=== PATIENT | female | born 1955 | race Caucasian/White ===

== ENCOUNTER 2017-11-14 15:57 | Observation (INO) | payer SELFPAY ==
[2017-11-14] VITALS (7 sets, daily range): BP systolic 97–112; BP diastolic 57–74
[~2017-11-14] VITALS: Ht 165.1 cm; Wt 82.7 kg
[~2017-11-14 15:57] MED LIST: ALPR-557 GT; ALPR.5T PO; ASP81TEC PO; ASPI-198 PO; CYCL10TA9 PO; DIAZ2TAB PO; MTP25TSR PO; NAPR-243 PO; PHEN200T27 PO; SULF-222 PO
[2017-11-14] MEDS ORDERED: ENOXAPARIN 100 MG/1 ML (LOVENOX) SYR ONE (16:12)
[2017-11-14] MEDS ORDERED: DILTIAZEM 25 MG/5 ML INJ (CARDIZEM) VIAL ONE (16:12)
[2017-11-14] MEDS ORDERED: ADENOSINE 6 MG/2 ML (ADENOCARD) VIAL IV ONE (16:13)
[2017-11-14] MEDS ORDERED: DILTIAZEM (Omnicell drip kit) 5 X 25 MG VIALS ONE (16:13)
[2017-11-14] MEDS ORDERED: NS IV 1000 ML 1,000 ML ONE (16:16)
[2017-11-14] MEDS ORDERED: NS (IVPB) 100 ML ONE (16:17)
[2017-11-14] MEDS ORDERED: ONDANSETRON 4 MG/2 ML (SDV) Z0FRAN ONE (16:17)
[2017-11-14] MEDS ORDERED: NS IV 1000 ML 1,000 ML IV ONE (16:24)
[2017-11-14] MEDS ORDERED: DILTIAZEM INJECTION 125 MG in NS (IVPB) 100 ML IV SCH (16:30)
[2017-11-14] MEDS ORDERED: ENOXAPARIN 100 MG/1 ML (LOVENOX) SYR SC ONE (16:30)
[2017-11-14] MEDS ORDERED: DILTIAZEM 25 MG/5 ML INJ (CARDIZEM) VIAL IVP ONE (16:30)
--- NOTE | 2017-11-14 16:35 | ED Cardiac General ---
History of Present Illness General Stated Complaint: EPISODE OF SOB/PALPITATIONS/JAW DISCOMFORT Source: patient History of Present Illness Date Seen by Provider: Nov 14, 2017 Time Seen by Provider: 16:02 Initial Comments PT ARRIVES VIA POV PT STATES "GOT REAL FLUTTERY AND BREATHLESS" --SYMPTOMS BEGAN LESS THAN 30 MINUTES PRIOR TO ARRIVAL, WHILE RIDING IN CAR. HAS HAD THESE SYMPTOMS OFF AND ON ALL WEEK, BUT NOT THIS BAD OR FOR THIS LONG. HAS HAD GENERALIZED WEAKNESS AND FATIGUE SINCE THURSDAY LEFT JAW HAD WEIRD SENSATION--"FELT LIKE AN AIR BUBBLE WENT THROUGH A VEIN" -- SENSATION IS GONE NOW BEGAN HAVING NAUSEA EN ROUTE HANDS WERE CLAMMY ENROUTE HAS HAD SOME ANKLE SWELLING THIS WEEK HAS HAD A SLIGHT COUGH NO FEVER IS FEELING DIZZY HAS ONGOING PAIN TO LEFT UPPER CHEST/BREAST SINCE MAY--HAS HAD PAINFUL LUMPS IN THIS AREA. AND HAS SEEN ARTIST BLACKSMITH ABOUT IT BUT NO RECNET MAMMOGRAM OR ULTRASOUND--BUT HAS BEEN LESS THAN A YEAR SINCE LAST MAMMOGRAM SEEN AT [facility] IN [place] YESTERDAY FOR THESE SYMPTOMS--HAD LAB DRAWN BUT NO RESULTS FEELING ANXIOUS--HAS HAD ANXIETY /PANIC ATTACKS IN THE PAST AND BEEN PRESCRIBED XANAX IN THE PAST--NOT USED FOR A LONG TIME. PT TOOK 4 BABY ASPIRIN AND DRANK ORANGE JUICE ENROUTE, WITHOUT IMPROVEMENT IN SYMPTOMS PCP: [facility] IN [place] Allergies and Home Medications Allergies Coded Allergies: morphine (Verified Allergy, Severe, 04/29/13) menthol (Unverified Allergy, Unknown, 02/19/14) lorazepam (Unverified Adverse Reaction, Unknown, ANGRY, 02/19/14) Uncoded Allergies: PCN (Allergy, Unknown, 02/19/14) Home Medications Diazepam 2 Mg Tablet, 2 MG PO BID PRN for ANXIETY Prescribed by: ALFONSO DURAN on 11/19/15 9142 Patient Home Medication List Home Medication List Reviewed: Yes Review of Systems Constitutional: see HPI, dizziness, malaise (FATIGUE), weakness, other (CLAMMY) EENTM: See HPI Respiratory: See HPI, Cough, Shortness of Air, SOA With Exertion, SOA at Rest, Denies Wheezing Cardiovascular: See HPI, Chest Pain, Edema, Irregular Heart Rate, Lightheadedness, Palpitations, Denies Syncope Gastrointestinal: See HPI, Denies Abdominal Pain, Nausea, Denies Vomiting Genitourinary: No Symptoms Reported Musculoskeletal: no symptoms reported, No back pain, No neck pain Skin: no symptoms reported Psychiatric/Neurological: See HPI, Anxiety, Denies Headache, Denies Numbness, Denies Paresthesia, Denies Tingling, Denies Tremors, Denies Weakness Endocrine: No Symptoms Reported Hematologic/Lymphatic: No Symptoms Reported Past Xclbqdt-Uhaoua-Flyyzc Hx Patient Social History Alcohol Use: Denies Use Recreational Drug Use: No Smoking Status: Never a Smoker Recent Foreign Travel: No Contact w/Someone Who Travel: No Surgeries History of Surgeries: Yes Surgeries: Tonsillectomy Respiratory History of Respiratory Disorde: No Cardiovascular History of Cardiac Disorders: No Neurological History of Neurological Disord: No Reproductive System Hx Reproductive Disorders: No 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 Genitourinary History of Genitourinary Disor: No Gastrointestinal History of Gastrointestinal Di: No Musculoskeletal History of Musculoskeletal Dis: No Endocrine History of Endocrine Disorders: No HEENT History of HEENT Disorders: Yes (POSSIBLE GLAUCOMA) Cancer History of Cancer: No Psychosocial History of Psychiatric Problem: Yes Behavioral Health Disorders: Anxiety Physical Exam Vital Signs Vital Signs - First Documented 11/14/17 16:11 Temp 98.6 Pulse 170 Resp 14 B/P (MAP) 146/101 (116) Pulse Ox 98 O2 Delivery Nasal Cannula O2 Flow Rate 2.00 FiO2 100 Capillary Refill : General Appearance: No Apparent Distress, WD/WN, Anxious HEENT: PERRL/EOMI Neck: Full Range of Motion, Normal Inspection, Non Tender, Supple, No Carotid Bruit, No JVD Respiratory: Chest Non Tender, Normal Breath Sounds, No Accessory Muscle Use, No Respiratory Distress Cardiovascular: Regular Rate, Rhythm, No JVD, No Murmur, Normal Peripheral Pulses Gastrointestinal: Non Tender, Soft Extremity: Normal Capillary Refill, Normal Range of Motion, Non Tender, No Calf Tenderness, Pedal Edema (TRACE BILATERALLY) Neurologic/Psychiatric: Alert, Oriented x3, No Motor/Sensory Deficits, piece dyer II- XII Norm as Tested, Other (ANXIOUS) Skin: Normal Color, Warm/Dry Progress/Results/Core Measures Results/Orders Lab Results Laboratory Tests Test 11/14/17 16:10 Range/Units White Blood Count 8.2 4.3-11.0 10^3/uL Red Blood Count 4.32 L 4.35-5.85 10^6/uL Hemoglobin 13.6 11.5-16.0 G/DL Hematocrit 40 35-52 % Mean Corpuscular Volume 93 80-99 FL Mean Corpuscular Hemoglobin 32 25-34 PG Mean Corpuscular Hemoglobin Concent 34 32-36 G/DL Red Cell Distribution Width 12.9 10.0-14.5 % Platelet Count 244 130-400 10^3/uL Mean Platelet Volume 10.0 7.4-10.4 FL Neutrophils (%) (Auto) 48 42-75 % Lymphocytes (%) (Auto) 44 12-44 % Monocytes (%) (Auto) 5 0-12 % Eosinophils (%) (Auto) 3 0-10 % Basophils (%) (Auto) 0 0-10 % Neutrophils # (Auto) 3.9 1.8-7.8 X 10^3 Lymphocytes # (Auto) 3.6 1.0-4.0 X 10^3 Monocytes # (Auto) 0.4 0.0-1.0 X 10^3 Eosinophils # (Auto) 0.2 0.0-0.3 10^3/uL Basophils # (Auto) 0.0 0.0-0.1 10^3/uL Prothrombin Time 12.7 12.2-14.7 SEC INR Comment 0.9 0.8-1.4 Activated Partial Thromboplast Time 24 24-35 SEC Sodium Level 138 135-145 MMOL/L Potassium Level 3.6 3.6-5.0 MMOL/L Chloride Level 105 98-107 MMOL/L Carbon Dioxide Level 22 21-32 MMOL/L Anion Gap 11 5-14 MMOL/L Blood Urea Nitrogen 11 7-18 MG/DL Creatinine 0.82 0.60-1.30 MG/DL Estimat Glomerular Filtration Rate > 60 BUN/Creatinine Ratio 13 Glucose Level 173 H 70-105 MG/DL Calcium Level 9.3 8.5-10.1 MG/DL Magnesium Level 2.2 1.8-2.4 MG/DL Total Bilirubin 0.6 0.1-1.0 MG/DL Aspartate Amino Transf (AST/SGOT) 26 5-34 U/L Alanine Aminotransferase (ALT/SGPT) 26 0-55 U/L Alkaline Phosphatase 64 40-136 U/L Total Creatine Kinase 88 29-168 U/L Creatine Kinase MB 1.2 <6.6 NG/ML Troponin I < 0.30 <0.30 NG/ML B-Type Natriuretic Peptide 72.7 <100.0 PG/ML Total Protein 7.0 6.4-8.2 GM/DL Albumin 4.4 3.2-4.5 GM/DL TSH [place] Testing 0.59 0.35-4.94 UIU/ML My Orders Orders - JOSE ELIAS ARIZMENDI DO Enoxaparin Injection (Lovenox Injection) (11/14/17 16:12) Diltiazem Injection (Cardizem Injection) (11/14/17 16:12) Diltiazem (Omnicell Drip Kit) (Cardizem (11/14/17 16:13) Adenosine Injection (Adenocard Injection (11/14/17 16:13) Ns Iv 1000 Ml (Sodium Chloride 0.9%) (11/14/17 16:16) Ns (Ivpb) (Sodium Chloride 0.9% Ivpb Bag (11/14/17 16:17) Ondansetron Injection (Zofran Injectio (11/14/17 16:17) Saline Lock/Iv-Start (11/14/17 16:24) Ekg Tracing (11/14/17 16:24) O2 (11/14/17 16:24) Monitor-Rhythm Ecg Trace Only (11/14/17 16:24) BNP (11/14/17 16:24) Cbc With Automated Diff (11/14/17 16:24) Comprehensive Metabolic Panel (11/14/17 16:24) Creatine Kinase (11/14/17 16:24) Creatine Kinase Mb (11/14/17 16:24) Magnesium (11/14/17 16:24) Protime With Inr (11/14/17 16:24) Partial Thromboplastin Time (11/14/17 16:24) Thyroid Analyzer (11/14/17 16:24) Troponin I (11/14/17 16:24) Chest 1 View, Ap/Pa Only (11/14/17 16:24) Saline Lock/Iv-Start (11/14/17 16:24) Ns Iv 1000 Ml (Sodium Chloride 0.9%) (11/14/17 16:24) Enoxaparin Injection (Lovenox Injection) (11/14/17 16:30) Ns (Ivpb) (Sodium C... W/Diltiazem Injec (11/14/17 16:30) Diltiazem Injection (Cardizem Injection) (11/14/17 16:30) Diazepam Injection (Valium Injection) (11/14/17 16:45) Ekg Tracing (11/14/17 16:40) Ekg Tracing (11/14/17 16:40) Ekg Tracing (11/14/17 16:40) Ekg Tracing (11/14/17 17:00) Medications Given in ED Current Medications Medications Dose Ordered Sig/Edel Route Start Time Stop Time Status Last Admin Dose Admin Diazepam 2.5 mg ONCE ONCE IV 11/14/17 16:45 11/14/17 16:46 DC 11/14/17 17:16 2.5 MG Diltiazem HCl 125 mg STK-MED ONCE .ROUTE 11/14/17 16:13 11/14/17 16:17 DC 11/14/17 17:14 125 MG Ondansetron HCl 4 mg STK-MED ONCE .ROUTE 11/14/17 16:17 11/14/17 16:21 DC 11/14/17 17:18 4 MG Sodium Chloride 100 ml @ ud STK-MED ONCE .ROUTE 11/14/17 16:17 11/14/17 16:21 DC 11/14/17 17:14 100 MLS/HR Vital Signs/I&O Vital Sign - Last 12Hours 11/14/17 11/14/17 16:11 16:11 Temp 98.6 Pulse 170 Resp 14 B/P (MAP) 146/101 (116) Pulse Ox 98 98 O2 Delivery Nasal Cannula Nasal Cannula O2 Flow Rate 2.00 2.00 FiO2 100 Progress Note : Progress Note IMMEDIATELY AFTER PT WAS DISCONNECTED FROM EKG MACHINE, PT WENT INTO ATRIAL FIBRILLATION WITH RVR WITH RATE FROM 140'S TO 205 AND PT VERY SYMPTOMATIC- SHORTNESS OF BREATH, GENERAL UNCOMFORTABLE FEELING, ANXIOUS. NO ACTUAL CHEST PAIN--JUST FEELS UNCOMFORTABLE FROM HEART BEATING FAST AND IRREGULAR. NO SWEATS. STATES SHE IS FEELING VERY DIZZY PT GIVEN CARDIZEM BOLUS AND PLACED ON A DRIP GIVEN LOVENOX PT ALSO GIVEN VALIUM PT CONVERTED TO NSR AFTER BEING PLACED ON CARDIZEM, PT DID HAVE A COUPLE OF BRIEF EPISODES OF INTERMITTENT ATRIAL FIB. BUT NO RVR, AND PT IN NSR AT TIME OF ADMIT NO DETERIORATION IN PT'S CONDITION DURING ER STAY. ECG Initial ECG Impression Date: Nov 14, 2017 Initial ECG Impression Time: 16:03 Initial ECG Rate: 87 Initial ECG Rhythm: Normal Sinus Initial ECG Comparisson: No Previous ECG Available EKG : EKG Time: 16:11 Rate: 159 Rhythm: A Fib/Flutter (ATRIAL FIB WITH RVR AND PVC'S, NON SPECIFIC ST SEGMENTS) Comment EKG #3-AT 1616--ATRIAL FIB WITH RVR, PVC'S. NON-SPECIFIC ST SEGMENTS. RATE 121 EKG #4 AT 1620--ATRIAL FIB WITH RVR, PVC'S. NON-SPECIFIC ST SEGMENTS. RATE 130 EKG #5 AT 1633--ATRIAL FIB, RATE 88. ST SEGMENTS NORMAL EKG #6 AT 1655--ATRIAL FIB, RATE 82. NSR. NON-SPECIFIC ST SEGMENTS. Diagnostic Imaging Comments CXR--NO ACUTE PROCESS PER RADIOLOGIST REPORT @ 1813 Reviewed: Reviewed by Oh Critical Care Note Critical Care Total Time (minutes) 30 Departure Communication (Admissions) Progress Notes 1700--SPOKE WITH DR. SARAVIA, ACCEPTS PT FOR ADMIT. ORDERS NOTED FOR ELIQUIS AND CONTINUE CARDIZEM DRIP. Impression Impression: Primary Impression: NEW ONSET ATRIAL FIBRILLATION WITH RVR Disposition: ADMITTED INPATIENT Condition: Improved Admissions Decision to Admit Reason: Admit from ER (General) Decision to Admit/Date: Nov 14, 2017 Time/Decision to Admit Time: 16:02 Departure-Patient Inst. Referrals: NO,LOCAL PHYSICIAN (PCP/Family) Primary Care Physician JOSE ELIAS ARIZMENDI DO Nov 14, 2017 16:35
[2017-11-14 16:39] LABS: BASOPHILS % (AUTO) 0 % (0-10); EOSINOPHILS # (AUTO) 0.2 10^3/uL (0.0-0.3); EOSINOPHILS % (AUTO) 3 % (0-10); HEMATOCRIT 40 % (35-52); HEMOGLOBIN 13.6 G/DL (11.5-16.0); LYMPHOCYTES # (AUTO) 3.6 X 10^3 (1.0-4.0); LYMPHOCYTES % (AUTO) 44 % (12-44); MEAN CORPUSCULAR HEMOGLOBIN 32 PG (25-34); MEAN CORPUSCULAR HGB CONC 34 G/DL (32-36); MEAN CORPUSCULAR VOLUME 93 FL (80-99); MONOCYTES # (AUTO) 0.4 X 10^3 (0.0-1.0); MONOCYTES % (AUTO) 5 % (0-12); NEUTROPHILS # (AUTO) 3.9 X 10^3 (1.8-7.8); NEUTROPHILS % (AUTO) 48 % (42-75); PLATELET COUNT 244 10^3/uL (130-400); RED BLOOD COUNT 4.32 10^6/uL (4.35-5.85); RED CELL DISTRIBUTION WIDTH 12.9 % (10.0-14.5); WHITE BLOOD COUNT 8.2 10^3/uL (4.3-11.0)
[2017-11-14] MEDS ORDERED: DIAZEPAM INJ 10 MG/2 ML (VALIUM) SYR IV ONE (16:45)
[2017-11-14 16:52] LABS: INR 0.9 (0.8-1.4); PROTHROMBIN TIME PATIENT 12.7 SEC (12.2-14.7)
[2017-11-14 16:58] LABS: ALANINE AMINOTRANSFERASE 26 U/L (0-55); ALBUMIN 4.4 GM/DL (3.2-4.5); ALKALINE PHOSPHATASE 64 U/L (40-136); BILIRUBIN,TOTAL 0.6 MG/DL (0.1-1.0); BUN/CREATININE RATIO 13; CALCIUM 9.3 MG/DL (8.5-10.1); CARBON DIOXIDE 22 MMOL/L (21-32); CHLORIDE 105 MMOL/L (98-107); CREATINE KINASE 88 U/L (29-168); CREATININE SERUM 0.82 MG/DL (0.60-1.30); GFR ESTIMATED > 60; GLUCOSE 173 MG/DL (70-105); MAGNESIUM 2.2 MG/DL (1.8-2.4); POTASSIUM 3.6 MMOL/L (3.6-5.0); SODIUM 138 MMOL/L (135-145)
--- NOTE | 2017-11-14 17:01 | Diagnostic Imaging Report ---
INDICATION: Shortness of breath and irregular heartbeat. Comparison made with prior examination 04/29/13. FINDINGS: The heart size, mediastinal configuration, and pulmonary vascularity are within normal limits. There is no pleural effusion, pneumothorax, or pneumonia. The osseous structures are unremarkable. IMPRESSION: No acute cardiopulmonary abnormality. Dictated by: Dictated on workstation # [id number]
[2017-11-14 17:18] LABS: CREATINE KINASE MB 1.2 NG/ML (<6.6); TSH (THYROID ANALYZER) 0.59 UIU/ML (0.35-4.94)
[2017-11-14] MEDS ORDERED: DIAZEPAM INJ 10 MG/2 ML (VALIUM) SYR IV PRN (18:30)
[2017-11-14] MEDS ORDERED: DILTIAZEM IV SCH ×2 (18:30)
[2017-11-14] MEDS ORDERED: NS IV 1000 ML 1,000 ML IV SCH (18:30)
[2017-11-14] MEDS ORDERED: NS IV SCH ×2 (18:30)
[2017-11-14] MEDS ORDERED: DIAZEPAM 2 MG (VALIUM) TAB PO PRN (18:45)
[2017-11-14] MEDS ORDERED: DILTIAZEM 30 MG (CARDIZEM) TAB PO SCH (20:20)
[2017-11-14] MEDS: APIXABAN 5 MG (ELIQUIS) TABLET PO SCH (20:36)
--- NOTE | 2017-11-14 22:51 | History & Physicial-Cardiolgy ---
HPI-Cardiology Cardiology Consultation: Date of Consultation 11/14/17 Date of Admission Attending Physician Juan Chang MD Admitting Physician Justina,Local Physician Consulting Physician Juan CHANG MD HPI: Time Seen by Provider: 18:00 Chief Complaint: Palpitations This is a 62-year-old lady with history of hypertension. She has known history of palpitations however were becoming worse in the last one week. She presented to the ER with palpitations and dizziness and was found to be in atrial fibrillation with rapid ventricular rate. She was started on Cardizem infusion and was given Lovenox. She subsequently converted to sinus rhythm. When I saw her she was not complaining of any dizziness however she would occasionally have some palpitations. On telemetry she has paroxysmal atrial flutter/atrial fibrillation. Review of Systems-Cardiology Review of Systems Constitutional: No As described under HPI, No no symptoms reported, No chills, No fever, lightheadedness, No malaise, No tiredness, No weight loss, No weight gain, No other Eyes: No As described under HPI, No no symptoms reported, No blindness, No blurred vision, No contact lenses, No drainage, No decreased acuity, No foreign body sensation, No glasses, No inflammation, No pain, No photophobia, No previous injury, No shadows, No tunnel vision, No other, No vision change Ears/Nose/Throat: No As described under HPI, No no symptoms reported, No chronic hearing loss, No epistaxis, No ear discharge, No ear pain, No loose teeth, No mouth pain, No mouth swelling, No nasal drainage, No nose pain, No recent hearing loss, No throat pain, No throat swelling, No ulcerations, No other Respiratory: shortness of breath Cardiovascular: irregular heart rate, palpitations Gastrointestinal: No no symptoms reported, No As described under HPI, No abdomen distended, No abdominal pain, No blood streaked bowels, No constipation , No diarrhea, No difficulty swallowing, No nausea, No poor appetite, No poor fluid intake, No rectal bleeding, No vomiting, No other, No nausea/vomiting/ diarrhea, No stool coloration changes Genitourinary: No no symptoms reported, No As described under HPI, No burning, No dysuria, No discharge, No frequency, No flank pain, No hematuria, No incontinence, No pain, No urgency, No other, No urine frequency changes, No urine coloration changes Musculoskeletal: No no symptoms reported, No As describe under HPI, No back pain, No gout, No joint pain, No joint swelling, No muscle pain, No muscle stiffness, No neck pain, No other Skin: No no symptoms reported, No As described under HPI, No change in color, No change in hair/nails, No dryness, No lesions, No lumps, No rash, No other, No skin related problems, No ulcerations, No rash on exposed areas, No ulcerations on exposed areas Psychiatric/Neurological: No no symptoms reported, No As described under HPI, No anxiety, No depression, No emotional problems, No headache, No numbness, No pre-existing deficit, No seizure, No tingling, No tremors, No weakness, No other , No focal weakness, No syncope Hematologic: No no symptoms reported, No As described under HPI, No anemia, No blood clots, No easy bleeding, No easy bruising, No swollen glands, No other, No bleeding abnormalities [id number] Hx Patient Social History Alcohol Use: Denies Use Recreational Drug Use: No Smoking Status: Former Smoker Type Used: Cigarettes Recent Foreign Travel: No Recent Infectious Disease Expo: No Physical Abuse Screen: No Sexual Abuse: No Past Medical History PMH As described under Assessment. Allergies and Home Medications Allergies Coded Allergies: morphine (Verified Allergy, Severe, 04/29/13) menthol (Unverified Allergy, Unknown, 02/19/14) lorazepam (Unverified Adverse Reaction, Unknown, ANGRY, 02/19/14) Uncoded Allergies: PCN (Allergy, Unknown, 02/19/14) Home Medications Diazepam 2 Mg Tablet, 2 MG PO BID PRN for ANXIETY Prescribed by: ALFONSO DURAN on 11/19/15 1891 Patient Home Medication List Home Medication List Reviewed: Yes Physical Exam-Cardiology Physical Exam Vital Signs/I&O Vital Sign - Last 12Hours 11/14/17 11/14/17 11/14/17 11/14/17 16:11 16:11 17:00 17:34 Temp 98.6 Pulse 170 80 Resp 14 14 B/P (MAP) 146/101 (116) 100/71 (81) 96/63 Pulse Ox 98 98 98 O2 Delivery Nasal Cannula Nasal Cannula Room Air O2 Flow Rate 2.00 2.00 FiO2 100 11/14/17 11/14/17 18:00 20:00 Pulse 82 Resp 23 B/P (MAP) 110/69 (83) Pulse Ox 99 99 O2 Delivery Room Air Room Air Capillary Refill : Less Than 3 Seconds Constitutional: AAO x 3 HEENT: PERRL, No normal ENT inspection, No TMs normal, No pharynx normal, No scleral icterus (R), No scleral icterus (L), No pale conjunctivae (R), No pale conjunctivae (L), No photophobia, No TM abnormal (R), No TM abnormal (L), No pharyngeal erythema, No tonsillar exudate, No other, No discharge, No EOMI, hearing is well preserved, No hard of hearing, oral hygience is good, No ulceration, No xanthelasmas are seen Neck: No non-tender, No full range of motion, No supple, No normal inspection, No carotid bruit, No limited range of motion, No lymphadenopathy (R), No lymphadenopathy (L), No tender lateral, No tender midline, No thyromegaly, No other, carotid pulses are 2 + bilaterally, No with good upstrokes Respiratory: No accessory muscle use, No respiratory distress, No chest tender , No chest expansion is symmetric, chest is bilaterally symmetric, No lungs clear to percussion, lungs clear to auscultation, No crackles, No rhonchi, No rales, No stridor, No wheezing, No pleural rub, No other Cardiovascular: regular rate-rhythm, No irregularly irregular, No extra beats, No parasternal heave is noted, No JVD, No edema, No bradycardia, No tachycardia , No point of maximal impulse, No cardiac thrills are palpable, S1 and S2, No gallop/S3, No gallop/S4, No diastolic murmur, No systolic murmur, No friction rub, No click, No other Gastrointestinal: No tender, No soft, No round, No distended, No pulsatile mass , No organomegaly, No guarding, No rebound, No tenderness, No hernia, No mass, No audible bowel sounds, No abnormal bowel sounds, No abdominal bruits, No spleenomegaly, No other Rectal: deferred Extremities: No normal range of motion, No non-tender, No normal inspection, No pedal edema, No calf tenderness, No normal capillary refill, No pelvis stable , No calf tenderness, No inflammation, No pedal edema, No slow capillary refill , No swelling, No other, No abrasion, No clubbing, No cyanosis, No ecchymosis, No laceration, No no lower extremity edema bilateral, No significant edema, No tenderness, No wound Neurologic/Psychiatric: No photo lab specialist II-XII nml as tested, No no motor/sensory deficits, alert, normal mood/affect, oriented x 3, No abnormal cerebellar tests , No abnormal photo lab specialist II-XII, No abnormal gait, No aphasia, No EOM palsy, No facial droop, No motor weakness, No sensory deficit, No depressed affect, No disoriented x 3, No other, No grossly intact, No power is 5/5 both on sides Skin: No normal color, No warm/dry, No cyanosis, No cool, No diaphoresis, No damp, No ecchymosis, No jaundice, No mottled, No pallor, No rash, No tattoos/ piercings, No ulcerations, No rash on exposed areas, No ulcerations on exposed areas, No other Lymphatic: No no adenopathy, No axilla node tender (R), No axilla node tender ( L), No inguinal node tender (R), No inguinal node tender (L), No other Data Review Labs Laboratory Tests 11/14/17 16:10: White Blood Count 8.2, Red Blood Count 4.32L, Hemoglobin 13.6, Hematocrit 40, Mean Corpuscular Volume 93, Mean Corpuscular Hemoglobin 32, Mean Corpuscular Hemoglobin Concent 34, Red Cell Distribution Width 12.9, Platelet Count 244, Mean Platelet Volume 10.0, Neutrophils (%) (Auto) 48, Lymphocytes (%) (Auto) 44 , Monocytes (%) (Auto) 5, Eosinophils (%) (Auto) 3, Basophils (%) (Auto) 0, Neutrophils # (Auto) 3.9, Lymphocytes # (Auto) 3.6, Monocytes # (Auto) 0.4, Eosinophils # (Auto) 0.2, Basophils # (Auto) 0.0, Prothrombin Time 12.7, INR Comment 0.9, Activated Partial Thromboplast Time 24, Sodium Level 138, Potassium Level 3.6, Chloride Level 105, Carbon Dioxide Level 22, Anion Gap 11, Blood Urea Nitrogen 11, Creatinine 0.82, Estimat Glomerular Filtration Rate > 60 , BUN/Creatinine Ratio 13, Glucose Level 173H, Calcium Level 9.3, Magnesium Level 2.2, Total Bilirubin 0.6, Aspartate Amino Transf (AST/SGOT) 26, Alanine Aminotransferase (ALT/SGPT) 26, Alkaline Phosphatase 64, Total Creatine Kinase 88, Creatine Kinase MB 1.2, Troponin I < 0.30, B-Type Natriuretic Peptide 72.7, Total Protein 7.0, Albumin 4.4, TSH [place] Testing 0.59 11/14/17 22:15: ECG Impression ECG Initial ECG Impression: Atrial Fibrillation w/RVR A/P-Cardiology Assessment/Admission Diagnosis Atrial fibrillation with rapid ventricular rate, Hypertension, Panic disorder/Anxiety Admission Status: Observation Plan Continue Cardizem infusion. Overlapped with Cardizem by mouth 90 mg twice a day. Start Eliquis 5 mg twice a day. Hypertension: We'll monitor. I discussed at length with the patient about atrial fibrillation, pathophysiology, stroke prevention, rate versus rhythm control, diagnostic modalities and advanced treatment modalities. She does not have primary care physician or pill packer. She also does not have insurance. I discussed at length with the nurse and will set up a social service director/lock maintenance supervisor who may be able to apply for Medicaid. Her CHADSVASC score is 2 (gender, HTN), therefore she is a candidate for oral anticoagulation therapy. She was started on Eliquis. TSH to rule out hyperthyroidism. Panic disorder/anxiety- BDZ. Clinical Quality Measures DVT/VTE Risk/Contraindication: Risk Factor Score Per Nursin RFS Level Per Nursing on Admit: 2=Moderate Juan CHANG MD Nov 14, 2017 10:51 pm
[2017-11-15] VITALS (11 sets, daily range): BP systolic 87–101; BP diastolic 52–67
[2017-11-15 04:38] LABS: BASOPHILS % (AUTO) 0 % (0-10); EOSINOPHILS # (AUTO) 0.2 10^3/uL (0.0-0.3); EOSINOPHILS % (AUTO) 3 % (0-10); HEMATOCRIT 36 % (35-52); HEMOGLOBIN 12.1 G/DL (11.5-16.0); LYMPHOCYTES # (AUTO) 3.2 X 10^3 (1.0-4.0); LYMPHOCYTES % (AUTO) 48 % (12-44); MEAN CORPUSCULAR HEMOGLOBIN 32 PG (25-34); MEAN CORPUSCULAR HGB CONC 34 G/DL (32-36); MEAN CORPUSCULAR VOLUME 94 FL (80-99); MEAN PLATELET VOLUME 9.7 FL (7.4-10.4); MONOCYTES # (AUTO) 0.5 X 10^3 (0.0-1.0); MONOCYTES % (AUTO) 8 % (0-12); NEUTROPHILS # (AUTO) 2.7 X 10^3 (1.8-7.8); NEUTROPHILS % (AUTO) 41 % (42-75); PLATELET COUNT 221 10^3/uL (130-400); RED BLOOD COUNT 3.84 10^6/uL (4.35-5.85); WHITE BLOOD COUNT 6.6 10^3/uL (4.3-11.0)
[2017-11-15 04:59] LABS: ALANINE AMINOTRANSFERASE 20 U/L (0-55); ALBUMIN 3.6 GM/DL (3.2-4.5); ALKALINE PHOSPHATASE 52 U/L (40-136); BILIRUBIN,TOTAL 0.5 MG/DL (0.1-1.0); BUN/CREATININE RATIO 15; CALCIUM 8.5 MG/DL (8.5-10.1); CARBON DIOXIDE 22 MMOL/L (21-32); CHLORIDE 111 MMOL/L (98-107); CREATININE SERUM 0.65 MG/DL (0.60-1.30); GFR ESTIMATED > 60; GLUCOSE 111 MG/DL (70-105); POTASSIUM 4.1 MMOL/L (3.6-5.0); SODIUM 141 MMOL/L (135-145); TOTAL PROTEIN 5.8 GM/DL (6.4-8.2)
[2017-11-15] MEDS ORDERED: INFLUENZA TRIvalent 2017-2018 0.5 ML/45 MCG SYR IM ONE (07:30)
[2017-11-15] MEDS: APIXABAN 5 MG (ELIQUIS) TABLET PO SCH (08:31)
[2017-11-15] MEDS ORDERED: APIX5TAB PO (10:19)
[2017-11-15] MEDS ORDERED: DILT30TA PO (10:19)
--- NOTE | 2017-11-15 10:34 | Cardiology Discharge Summary ---
Diagnosis/Chief Complaint Date of Admission Nov 14, 2017 at 5:00 pm Date of Discharge 11/15/2017 Admission Diagnosis Atrial fibrillation with rapid ventricular rate Final/Discharge Diagnosis Atrial fibrillation Chief Complaint/HPI Chief Complaint/HPI This is a 62-year-old lady with history of hypertension. She has known history of palpitations however were becoming worse in the last one week. She presented to the ER with palpitations and dizziness and was found to be in atrial fibrillation with rapid ventricular rate. She was started on Cardizem infusion and was given Lovenox. She subsequently converted to sinus rhythm. When I saw her she was not complaining of any dizziness however she would occasionally have some palpitations. On telemetry she has paroxysmal atrial flutter/atrial fibrillation. Discharge Summary Procedures None. Discharge Physical Examination Normal cardiovascular examination. Normal respiratory examination. Hospital Course Patient converted to sinus rhythm on Cardizem infusion. Was started on by mouth Cardizem and Eliquis for stroke prevention. Pending Labs Discussion & Recommendations Discussion I discussed at length with the patient and family. Pathophysiology of atrial fibrillation was discussed. Rate versus rhythm control, stroke prevention, diagnostic modalities and advanced therapeutic options were discussed. The patient does not have insurance therefore I discussed at length ways to help her out with medications especially Eliquis. Discharge took over 30 minutes to complete. Follow up appt.: Dr. Chang on Thursday11/18/2017 Dicharge Diet: Cardiac Diet Activity as Tolerated: Yes Home Medications Reviewed patient Home Medication Reconciliation performed by pharmacy medication reconciliations dialysis patient care technician and/or nursing. Patients Allergies have been reviewed. Discharge Home Medications: Reviewed and agree with Discharge Medication list on patient's Discharge Instruction sheet Condition at discharge Stable. Instructions to patient/family Atrial fibrillation discussed at length with the patient and family. Clinical Quality Measures DVT/VTE Risk/Contraindication: Risk Factor Score Per Nursin RFS Level Per Nursing on Admit: 2=Moderate Juan CHANG MD Nov 15, 2017 10:34
[2017-11-15] MEDS ORDERED: DILTIAZEM 30 MG (CARDIZEM) TAB PO SCH (21:00)
== END 2017-11-15 10:15 | disposition home or self-care (01) ==
LOC: EDUNIT# 15:57 → ER 16:01 → ICU 17:00 → UNDOADMOB 17:00 → ICU 17:52 → UNDODISOB 11-15 11:05
PROVIDERS: ADMIT Internal Medicine Interventional Cardiology; ATTEND Internal Medicine Interventional Cardiology
DX: I48.0 Paroxysmal atrial fibrillation (principal); I10 Essential (primary) hypertension; F41.0 Panic disorder [episodic paroxysmal anxiety]; Z79.899 Other long term (current) drug therapy; Z88.5 Allergy status to narcotic agent
CPT/HCPCS: 36415; 71045; 80053; 82550; 82553; 83735; 83880; 84443; 84484; 85025; 85610; 85730; 87081; 93005; 93041; 96372; 96374; 96375; G0378

== ENCOUNTER → 2017-12-07 | Outpatient (CLI) | payer OTHER ==
[~2017-12-07] MED LIST changes: +APIX5TAB PO; +BRIMON0.2 OP; +CARB15DR OP; +DILT30TA PO; +METO50TA15 PO; +NITR-65 PO; +PHEN-640 PO
== END ==
LOC: CARD 10:18
PROVIDERS: ATTEND Internal Medicine Interventional Cardiology
DX: I10 Essential (primary) hypertension (principal); I48.0 Paroxysmal atrial fibrillation; F41.0 Panic disorder [episodic paroxysmal anxiety]
CPT/HCPCS: 93306

== ENCOUNTER 2017-12-10 08:45 | Outpatient (RCR) | payer OTHER ==
[~2017-12-10 08:45] MED LIST changes: -BRIMON0.2 OP; -CARB15DR OP; -METO50TA15 PO; -NITR-65 PO; -PHEN-640 PO
[2017-12-17] MEDS ORDERED: CARB15DR OP (13:03)
[2017-12-17] MEDS ORDERED: METO50TA15 PO (13:03)
[2017-12-17] MEDS ORDERED: BRIMON0.2 OP (13:05)
[2018-02-09] MEDS ORDERED: NITR-65 PO (23:40)
[2018-02-09] MEDS ORDERED: PHEN-640 PO (23:40)
[2018-02-11] MEDS ORDERED: ERYTHROMYCIN OPHTH OINT 1 GM (SINGLE USE) TUBE ONE (10:46)
[2018-02-11] MEDS ORDERED: PHYTONADIONE (VIT. K) NEONATAL 1 MG/0.5 ML AMP ONE (10:46)
[2018-02-11] MEDS ORDERED: PETROLATUM JELLY(VASELINE) 2.5 OZ TUBE ONE (10:46)
== END 2018-03-10 | disposition home or self-care (01) ==
LOC: CARD 08:45
PROVIDERS: ATTEND Internal Medicine Interventional Cardiology
DX: I48.0 Paroxysmal atrial fibrillation (principal)
CPT/HCPCS: 93225; 93226

== ENCOUNTER 2017-12-17 11:54 | Day surgery (SDC) | payer OTHER ==
[~2017-12-17] VITALS: Ht 165.1 cm; Wt 81.2 kg
[2017-12-17] VITALS (8 sets, daily range): BP systolic 101–121; BP diastolic 62–70
--- OUTSIDE RECORDS SUMMARY | 2017-12-17 11:59 | XMS REPORT | Continuity of Care Document ---
Author Author [facility] Organization [facility] Address Unknown Phone Unavailable Allergies Active Description Code Type Severity Reaction Onset Reported/Identified Relationship to Patient Clinical Status Yes morphine [id number] Drug Allergy Severe N/A 04/29/2013 Yes lorazepam [id number] Drug Allergy Unknown ANGRY 02/19/2014 Yes menthol [id number] Drug Allergy Unknown N/A 02/19/2014 Yes PCN PCN Unknown N/ A 02/19/2014 Medications There is no data. Problems Date Dx Coded Attending Type Code Diagnosis Diagnosed By 04/29/2013 SCOTT PAEZ MD Ot 781.7 TETANY 04/29/2013 SCOTT PAEZ MD Ot 786.09 RESPIRATORY ABNORM NEC 02/19/2014 ALFONSO DURAN APRN Ot 599.0 URIN TRACT INFECTION NOS 11/19/2015 ALFONSO DURAN DECATIZER Ot F10.10 ALCOHOL ABUSE, UNCOMPLICATED 11/19/2015 ALFONSO DURAN DECATIZER Ot F41.9 ANXIETY DISORDER, UNSPECIFIED 11/19/2015 ALFONSO DURAN DECATIZER Ot Y90.0 BLOOD ALCOHOL LEVEL OF LESS THAN 20 MG/1 11/21/2015 ALFONSO DURAN DECATIZER Ot F10.10 11/21/2015 ALFONSO DURAN DECATIZER Ot F41.9 11/21/2015 ALFONSO DURAN DECATIZER Ot Y90.0 11/15/2017 Juan SARAVIA MD Ot F41.0 PANIC DISORDER [EPISODIC PAROXYSMAL ANXI 11/15/2017 Juan SARAVIA MD Ot I10 ESSENTIAL (PRIMARY) HYPERTENSION 11/15/2017 Juan SARAVIA MD Ot I48.0 PAROXYSMAL ATRIAL FIBRILLATION 11/15/2017 Juan SARAVIA MD Ot Z79.899 OTHER NURSING HOME (CURRENT) DRUG THERAPY 11/15/2017 Juan SARAVIA MD Ot Z88.5 ALLERGY STATUS TO NARCOTIC AGENT STATUS 11/15/2017 MANJIT RAMOS, M ALE Ot F41.0 PANIC DISORDER [EPISODIC PAROXYSMAL ANXI 11/15/2017 MANJIT RAMOS, M ALE Ot I10 ESSENTIAL (PRIMARY) HYPERTENSION 11/15/2017 MANJIT RAMOS, M ALE Ot I48.0 PAROXYSMAL ATRIAL FIBRILLATION 11/15/2017 MANJIT RAMOS, M ALE Ot Z79.899 OTHER B[employer] REFEREE (CURRENT) DRUG THERAPY 11/15/2017 MANJIT RAMOS, Juan AGUILERA Ot Z88.5 ALLERGY STATUS TO NARCOTIC AGENT STATUS 12/08/2017 MANJIT RAMOS, M ALE Ot F41.0 PANIC DISORDER [EPISODIC PAROXYSMAL ANXI 12/08/2017 MANJIT RAMOS, M ALE Ot I10 ESSENTIAL (PRIMARY) HYPERTENSION 12/08/2017 MANJIT RAMOS, M ALE Ot I48.0 PAROXYSMAL ATRIAL FIBRILLATION 12/08/2017 MANJIT RAMOS M ALE Ot F41.0 PANIC DISORDER [EPISODIC PAROXYSMAL ANXI 12/08/2017 MANJIT RAMOS, M ALE Ot I10 ESSENTIAL (PRIMARY) HYPERTENSION 12/08/2017 MANJIT RAMOS, M ALE Ot I48.0 PAROXYSMAL ATRIAL FIBRILLATION 12/08/2017 MANJIT RAMOS M ALE Ot F41.0 PANIC DISORDER [EPISODIC PAROXYSMAL ANXI 12/08/2017 MANJIT RAMOS, M ALE Ot I10 ESSENTIAL (PRIMARY) HYPERTENSION 12/08/2017 MANJIT RAMOS, M ALE Ot I48.0 PAROXYSMAL ATRIAL FIBRILLATION 12/10/2017 MANJIT RAMOS M ALE Ot F41.0 PANIC DISORDER [EPISODIC PAROXYSMAL ANXI 12/10/2017 MANJIT RAMOS M ALE Ot I10 ESSENTIAL (PRIMARY) HYPERTENSION 12/10/2017 MANJIT RAMOS M ALE Ot I48.0 PAROXYSMAL ATRIAL FIBRILLATION 12/10/2017 Juan SARAVIA MD Ot F41.0 PANIC DISORDER [EPISODIC PAROXYSMAL ANXI 12/10/2017 MANJIT RAMOS, M ALE Ot I10 ESSENTIAL (PRIMARY) HYPERTENSION 12/10/2017 MANJIT RAMOS M LAE Ot I48.0 PAROXYSMAL ATRIAL FIBRILLATION Procedures There is no data. Results Test Result Range Complete blood count (CBC) with automated white blood cell (WBC) differential - 11/14/17 16:10 Blood leukocytes automated count (number/volume) 8.2 10*3/uL 4.3-11.0 Blood erythrocytes automated count (number/volume) 4.32 10*6/uL 4.35-5.85 Venous blood hemoglobin measurement (mass/volume) 13.6 g/dL 11.5-16.0 Blood hematocrit (volume fraction) 40 % 35-52 Automated erythrocyte mean corpuscular volume 93 [foz_us] 80-99 Automated erythrocyte mean corpuscular hemoglobin (mass per erythrocyte) 32 pg 25-34 Automated erythrocyte mean corpuscular hemoglobin concentration measurement ( mass/volume) 34 g/dL 32-36 Automated erythrocyte distribution width ratio 12.9 % 10.0-14.5 Automated blood platelet count (count/volume) 244 10*3/uL 130-400 Automated blood platelet mean volume measurement 10.0 [foz_us] 7.4-10.4 Automated blood neutrophils/100 leukocytes 48 % 42-75 Automated blood lymphocytes/100 leukocytes 44 % 12-44 Blood monocytes/100 leukocytes 5 % 0-12 Automated blood eosinophils/100 leukocytes 3 % 0-10 Automated blood basophils/100 leukocytes 0 % 0-10 Blood neutrophils automated count (number/volume) 3.9 10*3 1.8-7.8 Blood lymphocytes automated count (number/volume) 3.6 10*3 1.0-4.0 Blood monocytes automated count (number/volume) 0.4 10*3 0.0-1.0 Automated eosinophil count 0.2 10*3/uL 0.0-0.3 Automated blood basophil count (count/volume) 0.0 10*3/uL 0.0-0.1 PT panel in platelet poor plasma by coagulation assay - 11/14/17 16:10 Prothrombin time (PT) in platelet poor plasma by coagulation assay 12.7 s 12.2-14.7 INR in platelet poor plasma or blood by coagulation assay 0.9 0.8-1.4 Activated partial thromboplastin time (aPTT) in platelet poor plasma bycoagulation assay - 11/14/17 16:10 Activated partial thromboplastin time (aPTT) in platelet poor plasma bycoagulation assay 24 s 24-35 Comprehensive metabolic panel - 11/14/17 16:10 Serum or plasma sodium measurement (moles/volume) 138 mmol/L 135-145 Serum or plasma potassium measurement (moles/volume) 3.6 mmol/L 3.6-5.0 Serum or plasma chloride measurement (moles/volume) 105 mmol/L 98-107 Carbon dioxide 22 mmol/L 21-32 Serum or plasma anion gap determination (moles/volume) 11 mmol/L 5-14 Serum or plasma urea nitrogen measurement (mass/volume) 11 mg/dL 7-18 Serum or plasma creatinine measurement (mass/volume) 0.82 mg/dL 0.60-1.30 Serum or plasma urea nitrogen/creatinine mass ratio 13 NRG Serum or plasma creatinine measurement with calculation of estimated glomerular filtration rate > NRG Serum or plasma glucose measurement (mass/volume) 173 mg/dL 70-105 Serum or plasma calcium measurement (mass/volume) 9.3 mg/dL 8.5-10.1 Serum or plasma total bilirubin measurement (mass/volume) 0.6 mg/dL 0.1-1.0 Serum or plasma alkaline phosphatase measurement (enzymatic activity/volume) 64 U/L 40-136 Serum or plasma aspartate aminotransferase measurement (enzymatic activity/ volume) 26 U/L 5-34 Serum or plasma alanine aminotransferase measurement (enzymatic activity/volume ) 26 U/L 0-55 Serum or plasma protein measurement (mass/volume) 7.0 g/dL 6.4-8.2 Serum or plasma albumin measurement (mass/volume) 4.4 g/dL 3.2-4.5 Magnesium - 11/14/17 16:10 Magnesium 2.2 mg/dL 1.8-2.4 Serum or plasma creatine kinase measurement (enzymatic activity/volume) - 11/14 16:10 Serum or plasma creatine kinase measurement (enzymatic activity/volume) 88 U/L 29-168 Serum or plasma lithium measurement (moles/volume) - 11/14/17 16:10 BNP level 72.7 pg/mL <100.0 Serum or plasma creatine kinase MB measurement (enzymatic activity/volume) - 16:10 Serum or plasma creatine kinase MB measurement (enzymatic activity/volume) 1.2 ng/mL <6.6 Serum or plasma troponin i.cardiac measurement (mass/volume) - 11/14/17 16:10 Serum or plasma troponin i.cardiac measurement (mass/volume) < ng/ mL <0.30 Serum or plasma thyrotropin measurement by detection limit <=0.05 miu/l (units/ volume) - 11/14/17 16:10 Serum or plasma thyrotropin measurement by detection limit <=0.05 miu/l (units/ volume) 0.59 u[iU]/mL 0.35-4.94 Methicillin resistant Staphylococcus aureus (MRSA) screening culture - 18:10 Methicillin resistant Staphylococcus aureus (MRSA) screening culture NEG NRG Serum or plasma troponin i.cardiac measurement (mass/volume) - 11/14/17 22:15 Serum or plasma troponin i.cardiac measurement (mass/volume) < ng/ mL <0.30 Complete blood count (CBC) with automated white blood cell (WBC) differential - 11/15/17 04:30 Blood leukocytes automated count (number/volume) 6.6 10*3/uL 4.3-11.0 Blood erythrocytes automated count (number/volume) 3.84 10*6/uL 4.35-5.85 Venous blood hemoglobin measurement (mass/volume) 12.1 g/dL 11.5-16.0 Blood hematocrit (volume fraction) 36 % 35-52 Automated erythrocyte mean corpuscular volume 94 [foz_us] 80-99 Automated erythrocyte mean corpuscular hemoglobin (mass per erythrocyte) 32 pg 25-34 Automated erythrocyte mean corpuscular hemoglobin concentration measurement ( mass/volume) 34 g/dL 32-36 Automated erythrocyte distribution width ratio 13.0 % 10.0-14.5 Automated blood platelet count (count/volume) 221 10*3/uL 130-400 Automated blood platelet mean volume measurement 9.7 [foz_us] 7.4-10.4 Automated blood neutrophils/100 leukocytes 41 % 42-75 Automated blood lymphocytes/100 leukocytes 48 % 12-44 Blood monocytes/100 leukocytes 8 % 0-12 Automated blood eosinophils/100 leukocytes 3 % 0-10 Automated blood basophils/100 leukocytes 0 % 0-10 Blood neutrophils automated count (number/volume) 2.7 10*3 1.8-7.8 Blood lymphocytes automated count (number/volume) 3.2 10*3 1.0-4.0 Blood monocytes automated count (number/volume) 0.5 10*3 0.0-1.0 Automated eosinophil count 0.2 10*3/uL 0.0-0.3 Automated blood basophil count (count/volume) 0.0 10*3/uL 0.0-0.1 Comprehensive metabolic panel - 11/15/17 04:30 Serum or plasma sodium measurement (moles/volume) 141 mmol/L 135-145 Serum or plasma potassium measurement (moles/volume) 4.1 mmol/L 3.6-5.0 Serum or plasma chloride measurement (moles/volume) 111 mmol/L 98-107 Carbon dioxide 22 mmol/L 21-32 Serum or plasma anion gap determination (moles/volume) 8 mmol/L 5-14 Serum or plasma urea nitrogen measurement (mass/volume) 10 mg/dL 7-18 Serum or plasma creatinine measurement (mass/volume) 0.65 mg/dL 0.60-1.30 Serum or plasma urea nitrogen/creatinine mass ratio 15 NRG Serum or plasma creatinine measurement with calculation of estimated glomerular filtration rate > NRG Serum or plasma glucose measurement (mass/volume) 111 mg/dL 70-105 Serum or plasma calcium measurement (mass/volume) 8.5 mg/dL 8.5-10.1 Serum or plasma total bilirubin measurement (mass/volume) 0.5 mg/dL 0.1-1.0 Serum or plasma alkaline phosphatase measurement (enzymatic activity/volume) 52 U/L 40-136 Serum or plasma aspartate aminotransferase measurement (enzymatic activity/ volume) 21 U/L 5-34 Serum or plasma alanine aminotransferase measurement (enzymatic activity/volume ) 20 U/L 0-55 Serum or plasma protein measurement (mass/volume) 5.8 g/dL 6.4-8.2 Serum or plasma albumin measurement (mass/volume) 3.6 g/dL 3.2-4.5 Encounters ACCT No. Visit Date/Time Discharge Status Pt. Type Provider Facility Loc./Unit Complaint [id number] 12/14/2017 08:43:00 12/14/2017 23:59:59 CLS Outpatient Juan SARAVIA MD [facility] CARD I10 HTN [id number] 12/10/2017 08:45:00 12/10/2017 23:59:59 CLS Outpatient Juan SARAVIA MD [facility] CARD I48.0 PAF [id number] 12/10/2017 08:30:00 12/10/2017 08:30:00 CAN Preadmit Juan SARAVIA MD [facility] CARD R07.9 CHEST PAIN [id number] 12/07/2017 10:18:00 12/07/2017 23:59:59 CLS Outpatient Juan SARAVIA MD [facility] CARD I10 HTN [id number] 11/14/2017 17:00:00 11/15/2017 11:05:00 DIS Inpatient Juan SARAVIA MD [facility] ICU NEW ONSET ATRIAL FIB WITH RVR [id number] 11/19/2015 16:07:00 11/19/2015 18:20:00 DIS Emergency ALFONSO DURAN APRN [facility] ER ANXIETY ATTACK [id number] 02/19/2014 11:33:00 02/19/2014 12:54:00 DIS Emergency ALFONSO DURAN APRN [facility] ER UTI [id number] 04/29/2013 09:07:00 04/29/2013 11:30:00 DIS Emergency PHILIPPE RAMOS, SCOTT Danielle [facility] ER MULTIPLE COMPLAINTS
[2017-12-17] MEDS ORDERED: NS IV 1000 ML 3,000 ML ONE (12:03)
[2017-12-17] MEDS ORDERED: NS IV 1000 ML 1,000 ML IV SCH ×2 (12:08→14:06)
[2017-12-17] MEDS ORDERED: LIDOCAINE 1% INJ 50 ML (XYLOCAINE) VIAL ONE (12:19)
[2017-12-17] MEDS ORDERED: HEParin 1000 UNIT/ML (10ML VIAL) FOR BOLUS ONE (12:20)
[2017-12-17] MEDS ORDERED: LIDOCAINE 1% INJ 20 ML 20 ML VIAL ONE (12:45)
[2017-12-17 12:48] LABS: HEMOGLOBIN 13.6 G/DL (11.5-16.0); MEAN PLATELET VOLUME 9.5 FL (7.4-10.4); RED BLOOD COUNT 4.41 10^6/uL (4.35-5.85); RED CELL DISTRIBUTION WIDTH 12.6 % (10.0-14.5); WHITE BLOOD COUNT 6.7 10^3/uL (4.3-11.0)
[2017-12-17] MEDS ORDERED: VERAPAMIL 5 MG/2 ML (CALAN) VIAL IV ONE (12:50)
[2017-12-17] MEDS ORDERED: NITRO DRIP 25000 MCG/D5W 250 ML IV ONE (12:50)
[2017-12-17] MEDS ORDERED: CARB15DR OP (13:03)
[2017-12-17] MEDS ORDERED: METO50TA15 PO (13:03)
[2017-12-17 13:04] LABS: PROTHROMBIN TIME PATIENT 13.3 SEC (12.2-14.7)
[2017-12-17] MEDS ORDERED: BRIMON0.2 OP (13:05)
--- NOTE | 2017-12-17 13:12 | Cardiac Procedure Note-CS/ASA ---
Pre-Procedure Note Pre-Op Procedure Note H&P Reviewed The H&P was reviewed, patient examined and no changes noted. Date H&P Reviewed: Dec 17, 2017 Time H&P Reviewed: 13:12 Conscious Sedation Pre-Proced Time Reviewed: 13:12 ASA Class: 3 Airway Mallampati Classification: ([place] de[place] w[place] appropriate class) I. II. III, IV Lungs Heart ASA score ASA 1: a normal healthy patient ASA 2: a patient with a mild systemic disease (mid diabetes, controlled hypertension, obesity ASA 3: a patient with a severe systemic disease that limits activity (angina , COPD, prior Myocardial infarction) ASA 4: a patient with an incapacitating disease that is a constant threat to life (CHF, renal failure) ASA 5: a moribund patient not expected to survive 24 hrs. (ruptured aneurysm) ASA 6: a declared brain patient whose organs are being harvested. For emergent operations, add the letter E after the classification Grade 1 Sedation Plan: Analgesia, Amnesia, Plan communicated to team members, Discussed options with patient/fam, Discussed risks with patient/fam Note The patient is an appropriate candidate to undergo the planned procedure, sedation, and anesthesia. The patient immediately re-assessed prior to indication. Juan SARAVIA MD Dec 17, 2017 1:12 pm
[2017-12-17 13:13] LABS: ALANINE AMINOTRANSFERASE 24 U/L (0-55); ALBUMIN 4.3 GM/DL (3.2-4.5); ALKALINE PHOSPHATASE 55 U/L (40-136); BILIRUBIN,TOTAL 0.7 MG/DL (0.1-1.0); BUN/CREATININE RATIO 14; CALCIUM 9.7 MG/DL (8.5-10.1); CARBON DIOXIDE 29 MMOL/L (21-32); CHLORIDE 108 MMOL/L (98-107); CREATININE SERUM 0.69 MG/DL (0.60-1.30); GFR ESTIMATED > 60; GLUCOSE 97 MG/DL (70-105); SODIUM 142 MMOL/L (135-145); TOTAL PROTEIN 7.4 GM/DL (6.4-8.2)
[2017-12-17] MEDS ORDERED: diphenhydrAMINE 50 MG/ML INJ (BENADRYL) ONE (13:41)
--- NOTE | 2017-12-17 14:14 | Coronary Angiography Report ---
Coronary Angiography Report DATE OF PROCEDURE: 12/17/17 INDICATION: Chest pain, shortness of breath, ventricular tachycardia PREOPERATIVE DIAGNOSIS: Chest pain, shortness of breath, ventricular tachycardia POSTOPERATIVE DIAGNOSIS: Patent epicardial coronary arteries HISTORY: This is a patient who is 62 years old with recent history of atrial fibrillation. She also complains of chest pain and shortness of breath. Holter monitor showed numerous episodes of nonsustained ventricular tachycardia. Therefore, the patient was scheduled for coronary angiography. PROCEDURES PERFORMED: 1.Coronary angiography. 2.Left heart catheterization. 3. Aortic arch angiography COMPLICATIONS: None. SPECIMENS: None. ESTIMATED BLOOD LOSS: 10 mL ANESTHESIA: Conscious sedation ANTICOAGULATION: IV heparin CONTRAST: 77 mL FLUOROSCOPY: 4.5 minutes FLOUROSCOPY DOSE: 282 mgy PROCEDURE DETAILS: The patient is a 62 female and was brought to the clinical laboratory scientist after informed consent was taken. All the risks and complications were explained in detail; this included the risk of bleeding, vascular damage, stroke , [place] and even . The patient was draped and prepped in the usual sterile fashion. Access was gained in the right radial artery with a 6 [place] sheath. Coronary angiography and left heart catheterization was performed with the [place] catheter. Right coronary artery was engaged with a JR4 catheter. Aortic angiography was performed with a JR4 catheter. FINDINGS: 1.Left main: Patent. 2.LAD: Patent. 3.Left circumflex artery: Patent. 4.RCA: Patent. 5.Left heart catheterization: Aortic pressure 74/50 mmHg. LV pressure 80/5 mmHg. LVEDP 11 mmHg. Normal LV function with no wall motion abnormalities. No gradient across the aortic valve. 6. Aortic arch angiography: No evidence of aneurysm or dissection. Proximal segments of the great arteries are normal which included brachiocephalic artery , left common carotid artery, left subclavian artery. CONCLUSIONS: Patent epicardial coronary arteries. Beta blockers for nonsustained VT. Yuki Chang MD, FACP, FACC, [facility] Interventional Cardiology Juan CHANG MD Dec 17, 2017 2:14 pm
[2017-12-17] MEDS ORDERED: PATIENT MAY USE OWN MEDS, ALL PO SCH (14:15)
--- NOTE | 2017-12-17 14:16 | Cardiology Discharge Summary ---
Diagnosis/Chief Complaint Date of Admission 12/17/2017 Date of Discharge 12/17/2017 Admission Diagnosis Paroxysmal Atrial fibrillation, chest pain, shortness of breath, nonsustained ventricular tachycardia Final/Discharge Diagnosis Patent epicardial coronary arteries Chief Complaint/HPI Chief Complaint/HPI This is a 62-year-old lady with history of paroxysmal atrial fibrillation, chest pain, shortness of breath. Holter monitor showed numerous episodes of nonsustained ventricular tachycardia. Coronary angiography was recommended. Discharge Summary Procedures Coronary angiography showed patent epicardial coronary arteries. Normal LV function. Discharge Physical Examination Normal cardiovascular examination. Hospital Course Unremarkable. Pending Labs Laboratory Tests 12/17/17 12:40: White Blood Count 6.7, Red Blood Count 4.41, Hemoglobin 13.6, Hematocrit 40, Mean Corpuscular Volume 91, Mean Corpuscular Hemoglobin 31, Mean Corpuscular Hemoglobin Concent 34, Red Cell Distribution Width 12.6, Platelet Count 303, Mean Platelet Volume 9.5, Prothrombin Time 13.3, INR Comment 1.0, Activated Partial Thromboplast Time 27, Sodium Level 142, Potassium Level 4.0, Chloride Level 108, Carbon Dioxide Level 29, Anion Gap 5, Blood Urea Nitrogen 10, Creatinine 0.69, Estimat Glomerular Filtration Rate > 60, BUN/Creatinine Ratio 14, Glucose Level 97, Calcium Level 9.7, Total Bilirubin 0.7, Aspartate Amino Transf (AST/SGOT) 22, Alanine Aminotransferase (ALT/SGPT) 24, Alkaline Phosphatase 55, Total Protein 7.4, Albumin 4.3 Discussion & Recommendations Discussion Discharge instruction discussed with the patient and family. Follow up appt.: Dr. Chang in 2-3 weeks. Dicharge Diet: Cardiac Diet Activity as Tolerated: Yes Home Medications Reviewed patient Home Medication Reconciliation performed by pharmacy medication reconciliations highway traffic control technician and/or nursing. Patients Allergies have been reviewed. Discharge Home Medications: Reviewed and agree with Discharge Medication list on patient's Discharge Instruction sheet Condition at discharge Stable Instructions to patient/family Post catheter discharge instructions discussed with the patient and family. Juan CHANG MD Dec 17, 2017 2:16 pm
--- NOTE | 2017-12-17 14:17 | Discharge Inst-Post CATH ---
Discharge Inst-CATH Post Cardiac Cath D/C Inst Follow Up/Plan Dr. Chang in 3 weeks. CARDIAC CATH DISCHARGE INSTRUCTIONS *Hold Metformin for 48 hours post heart cath. ACTIVITY * Go Home directly and rest. * Limit activity of the leg (or wrist if it was used) for 7 days including aerobics, swimming, jogging, bicycling, etc. * Restrict stair-climbing for 7 days if possible, if not, climb up with your non -cath leg, then bring together on the same step. * Avoid lifting, pushing, pulling or excessive movement of the affected extremity for 7 days. * Customary sexual activity may be resumed after 2 days-use caution not to use a position that strains or causes pain to the affected extremity. * No driving for 24 hours. * NO SMOKING. * Avoid straining for bowel movements for 7 days. * Gentle walking on level ground is allowed. * Returning to work will depend on the type of procedure and the results. Your doctor will discuss this with you. CALL YOUR DOCTOR FOR ANY OF THE FOLLOWING: *If bleeding from the puncture site occurs- Apply gentle pressure to site with clean cloth and call your doctor or EMS. * If a knot or lump forms under the skin, increases in size, or causes pain. * If bruising appears to be worsening or moving further down your leg instead of disappearing. * Temperature above 101 F. CARE OF YOUR GROIN INCISION; * Bruising or purple discoloration of the skin near the puncture site is common. * You may shower only, no bathtub bathing for 5 days. Be careful to avoid slipping as your leg may feel stiff. * If a closure device was used on your femoral artery, please see the attached guide regarding care of the device and your leg. * REMOVE the dressing from your groin the next day after your procedure in the shower. CARE OF YOUR WRIST INCISION; * Bruising or purple discoloration of the skin near the puncture site is common. * You may shower. * DO NOT submerge wrist. * Remove dressing in 24 hours. Juan CHANG MD Dec 17, 2017 2:17 pm
== END 2017-12-17 16:33 | disposition home or self-care (01) ==
LOC: CATH 11:54
PROVIDERS: ATTEND Internal Medicine Interventional Cardiology
DX: R07.9 Chest pain, unspecified (principal); R06.02 Shortness of breath; I47.2 Ventricular tachycardia; I48.0 Paroxysmal atrial fibrillation; I10 Essential (primary) hypertension; F41.0 Panic disorder [episodic paroxysmal anxiety]; Z79.01 Long term (current) use of anticoagulants; Z79.899 Other long term (current) drug therapy
CPT/HCPCS: 36221; 36415; 80053; 85027; 85610; 85730; 87081; 93458

== ENCOUNTER 2018-01-07 09:00 | Outpatient (RCR) | payer OTHER ==
[~2018-01-07 09:00] MED LIST changes: +BRIMON0.2 OP; +CARB15DR OP; +METO50TA15 PO; +NS IV 500 ML 500 ML ONE
[2018-01-07] MEDS ORDERED: FUROSEMIDE 40 MG/4 ML INJ (LASIX) ONE (12:29)
[2018-02-09] MEDS ORDERED: PHEN-640 PO (23:40)
[2018-02-09] MEDS ORDERED: NITR-65 PO (23:40)
== END 2018-03-14 | disposition home or self-care (01) ==
LOC: CARD 09:00
PROVIDERS: ATTEND Internal Medicine Interventional Cardiology
DX: I48.0 Paroxysmal atrial fibrillation (principal); I10 Essential (primary) hypertension
CPT/HCPCS: 93270

== ENCOUNTER 2018-02-09 22:49 | Emergency (ER) | payer SELFPAY ==
[~2018-02-09] VITALS: Ht 165.1 cm; Wt 81.2 kg
[~2018-02-09 22:49] MED LIST changes: -NS IV 500 ML 500 ML ONE
--- OUTSIDE RECORDS SUMMARY | 2018-02-09 22:54 | XMS REPORT | Continuity of Care Document ---
Author Author [facility] Organization [facility] Address Unknown Phone Unavailable Allergies Active Description Code Type Severity Reaction Onset Reported/Identified Relationship to Patient Clinical Status Yes morphine [id number] Drug Allergy Severe N/A 04/29/2013 Yes lorazepam [id number] Drug Allergy Unknown ANGRY 02/19/2014 Yes menthol [id number] Drug Allergy Unknown N/A 02/19/2014 Yes PCN PCN Unknown N/ A 02/19/2014 Medications There is no data. Problems Date Dx Coded Attending Type Code Diagnosis Diagnosed By 04/29/2013 SCOTT PAEZ MD Ot 781.7 TETANY 04/29/2013 SCOTT PAEZ MD Ot 786.09 RESPIRATORY ABNORM NEC 02/19/2014 ALFONSO DURAN APRN Ot 599.0 URIN TRACT INFECTION NOS 11/19/2015 ALFONSO DURAN CORPORATE DIRECTOR Ot F10.10 ALCOHOL ABUSE, UNCOMPLICATED 11/19/2015 ALFONSO DURAN CORPORATE DIRECTOR Ot F41.9 ANXIETY DISORDER, UNSPECIFIED 11/19/2015 ALFONSO DURAN CORPORATE DIRECTOR Ot Y90.0 BLOOD ALCOHOL LEVEL OF LESS THAN 20 MG/1 11/21/2015 ALFONSO DURAN CORPORATE DIRECTOR Ot F10.10 11/21/2015 ALFONSO DURAN CORPORATE DIRECTOR Ot F41.9 11/21/2015 ALFONSO DURAN CORPORATE DIRECTOR Ot Y90.0 11/15/2017 Juan SARAVIA MD Ot F41.0 PANIC DISORDER [EPISODIC PAROXYSMAL ANXI 11/15/2017 Juna SARAVIA MD Ot I10 ESSENTIAL (PRIMARY) HYPERTENSION 11/15/2017 Juan SARAVIA MD Ot I48.0 PAROXYSMAL ATRIAL FIBRILLATION 11/15/2017 Juan SARAVIA MD Ot Z79.899 OTHER [facility] (CURRENT) DRUG THERAPY 11/15/2017 Juan SARAVIA MD Ot Z88.5 ALLERGY STATUS TO NARCOTIC AGENT STATUS 11/15/2017 MANJIT RAMOS, M ALE Ot F41.0 PANIC DISORDER [EPISODIC PAROXYSMAL ANXI 11/15/2017 MANJIT RAMOS, M ALE Ot I10 ESSENTIAL (PRIMARY) HYPERTENSION 11/15/2017 MANJIT RAMOS, M ALE Ot I48.0 PAROXYSMAL ATRIAL FIBRILLATION 11/15/2017 MANJIT RAMOS, M ALE Ot 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[address] 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) DRUG THERAPY 11/15/2017 MANJIT RAMOS, M ALE Ot Z88.5 ALLERGY STATUS TO NARCOTIC AGENT STATUS 12/08/2017 MANJIT RAMOS, M ALE Ot F41.0 PANIC DISORDER [EPISODIC PAROXYSMAL ANXI 12/08/2017 MANJIT RAMOS, M ALE Ot I10 ESSENTIAL (PRIMARY) HYPERTENSION 12/08/2017 MANJIT RAMOS, M ALE Ot I48.0 PAROXYSMAL ATRIAL FIBRILLATION 12/08/2017 MANJIT RAMOS, M ALE Ot F41.0 PANIC DISORDER [EPISODIC PAROXYSMAL ANXI 12/08/2017 MANJIT RAMOS, M ALE Ot I10 ESSENTIAL (PRIMARY) HYPERTENSION 12/08/2017 MANJIT RAMOS, M ALE Ot I48.0 PAROXYSMAL ATRIAL FIBRILLATION 12/08/2017 MANJIT RAMOS, M ALE Ot F41.0 PANIC DISORDER [EPISODIC PAROXYSMAL ANXI 12/08/2017 MANJIT RAMOS, M ALE Ot I10 ESSENTIAL (PRIMARY) HYPERTENSION 12/08/2017 MANJIT RAMOS, M ALE Ot I48.0 PAROXYSMAL ATRIAL FIBRILLATION 12/10/2017 MANJIT RAMOS, M ALE Ot F41.0 PANIC DISORDER [EPISODIC PAROXYSMAL ANXI 12/10/2017 MANJIT RAMOS, M ALE Ot I10 ESSENTIAL (PRIMARY) HYPERTENSION 12/10/2017 MANJIT RAMOS, M ALE Ot I48.0 PAROXYSMAL ATRIAL FIBRILLATION 12/10/2017 MANJIT RAMOS, M ALE Ot F41.0 PANIC DISORDER [EPISODIC PAROXYSMAL ANXI 12/10/2017 MANJIT RAMOS, M ALE Ot I10 ESSENTIAL (PRIMARY) HYPERTENSION 12/10/2017 MANJIT RAMOS, M ALE Ot I48.0 PAROXYSMAL ATRIAL FIBRILLATION 12/17/2017 Juan SARAVIA MD Ot F41.0 PANIC DISORDER [EPISODIC PAROXYSMAL ANXI 12/17/2017 MANJIT RAMOS, M ALE Ot I10 ESSENTIAL (PRIMARY) HYPERTENSION 12/17/2017 MANJIT RAMOS M ALE Ot I47.2 VENTRICULAR TACHYCARDIA 12/17/2017 MANJIT RAMOS M ALE Ot I48.0 PAROXYSMAL ATRIAL FIBRILLATION 12/17/2017 Juan SARAVIA MD Ot R06.02 SHORTNESS OF BREATH 12/17/2017 MANJIT RAMOS, M ALE Ot R07.9 CHEST PAIN, UNSPECIFIED 12/17/2017 Juan SARAVIA MD Ot Z79.01 [facility] (CURRENT) USE OF ANTICOAGULANT 12/17/2017 Juan SARAVIA MD Ot Z79.[address] 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) DRUG THERAPY 01/08/2018 Juan SARAVIA MD Ot F41.0 PANIC DISORDER [EPISODIC PAROXYSMAL ANXI 01/08/2018 MANJIT RAMOS M ALE Ot I10 ESSENTIAL (PRIMARY) HYPERTENSION 01/08/2018 MANJIT RAMOS M ALE Ot I48.0 PAROXYSMAL ATRIAL FIBRILLATION 01/08/2018 Juan SARAVIA MD Ot I48.0 PAROXYSMAL ATRIAL FIBRILLATION 01/08/2018 MANJIT RAMOS M ALE Ot I10 ESSENTIAL (PRIMARY) HYPERTENSION 01/08/2018 MANJIT RAMOS, M ALE Ot I48.0 PAROXYSMAL ATRIAL FIBRILLATION 01/08/2018 Juan SARAVIA MD Ot F41.0 PANIC DISORDER [EPISODIC PAROXYSMAL ANXI 01/08/2018 MANJIT RAMOS, M ALE Ot I10 ESSENTIAL (PRIMARY) HYPERTENSION 01/08/2018 MANJIT RAMOS, M ALE Ot I48.0 PAROXYSMAL ATRIAL FIBRILLATION 01/09/2018 MANJIT RAMOS M ALE Ot F41.0 PANIC DISORDER [EPISODIC PAROXYSMAL ANXI 01/09/2018 MANJIT RAMOS, M ALE Ot I10 ESSENTIAL (PRIMARY) HYPERTENSION 01/09/2018 Juan SARAVIA MD Ot I47.2 VENTRICULAR TACHYCARDIA 01/09/2018 MANJIT RAMOS M ALE Ot I48.0 PAROXYSMAL ATRIAL FIBRILLATION 01/09/2018 Juan SARAVIA MD Ot R06.02 SHORTNESS OF BREATH 01/09/2018 Juan SARAVIA MD Ot R07.9 CHEST PAIN, UNSPECIFIED 01/09/2018 Juan SARAVIA MD Ot Z79.01 [facility] (CURRENT) USE OF ANTICOAGULANT 01/09/2018 Juan SARAVIA MD, Ot Z79.899 OTHER [facility] (CURRENT) DRUG THERAPY Procedures There is no data. Results Test [...] plasma albumin measurement (mass/volume) 3.6 g/dL 3.2-4.5 Automated blood complete blood count (hemogram) panel - 12/17/17 12:40 Blood leukocytes automated count (number/volume) 6.7 10*3/uL 4.3-11.0 Blood erythrocytes automated count (number/volume) 4.41 10*6/uL 4.35-5.85 Venous blood hemoglobin measurement (mass/volume) 13.6 g/dL 11.5-16.0 Blood hematocrit (volume fraction) 40 % 35-52 Automated erythrocyte mean corpuscular volume 91 [foz_us] 80-99 Automated erythrocyte mean corpuscular hemoglobin (mass per erythrocyte) 31 pg 25-34 Automated erythrocyte mean corpuscular hemoglobin concentration measurement ( mass/volume) 34 g/dL 32-36 Automated erythrocyte distribution width ratio 12.6 % 10.0-14.5 Automated blood platelet count (count/volume) 303 10*3/uL 130-400 Automated blood platelet mean volume measurement 9.5 [foz_us] 7.4-10.4 PT panel in platelet poor plasma by coagulation assay - 12/17/17 12:40 Prothrombin time (PT) in platelet poor plasma by coagulation assay 13.3 s 12.2-14.7 INR in platelet poor plasma or blood by coagulation assay 1.0 0.8-1.4 Activated partial thromboplastin time (aPTT) in platelet poor plasma bycoagulation assay - 12/17/17 12:40 Activated partial thromboplastin time (aPTT) in platelet poor plasma bycoagulation assay 27 s 24-35 Comprehensive metabolic panel - 12/17/17 12:40 Serum or plasma sodium measurement (moles/volume) 142 mmol/L 135-145 Serum or plasma potassium measurement (moles/volume) 4.0 mmol/L 3.6-5.0 Serum or plasma chloride measurement (moles/volume) 108 mmol/L 98-107 Carbon dioxide 29 mmol/L 21-32 Serum or plasma anion gap determination (moles/volume) 5 mmol/L 5-14 Serum or plasma urea nitrogen measurement (mass/volume) 10 mg/dL 7-18 Serum or plasma creatinine measurement (mass/volume) 0.69 mg/dL 0.60-1.30 Serum or plasma urea nitrogen/creatinine mass ratio 14 NRG Serum or plasma creatinine measurement with calculation of estimated glomerular filtration rate > NRG Serum or plasma glucose measurement (mass/volume) 97 mg/dL 70-105 Serum or plasma calcium measurement (mass/volume) 9.7 mg/dL 8.5-10.1 Serum or plasma total bilirubin measurement (mass/volume) 0.7 mg/dL 0.1-1.0 Serum or plasma alkaline phosphatase measurement (enzymatic activity/volume) 55 U/L 40-136 Serum or plasma aspartate aminotransferase measurement (enzymatic activity/ volume) 22 U/L 5-34 Serum or plasma alanine aminotransferase measurement (enzymatic activity/volume ) 24 U/L 0-55 Serum or plasma protein measurement (mass/volume) 7.4 g/dL 6.4-8.2 Serum or plasma albumin measurement (mass/volume) 4.3 g/dL 3.2-4.5 Methicillin resistant Staphylococcus aureus (MRSA) screening culture - 12:40 Methicillin resistant Staphylococcus aureus (MRSA) screening culture NEG NRG Encounters ACCT No. Visit Date/Time Discharge Status Pt. Type Provider Facility Loc./Unit Complaint [id number] 01/07/2018 09:00:00 01/07/2018 23:59:59 CLS Outpatient Juan SARAVIA MD [facility] CARD I10 HTN [id number] 12/17/2017 11:54:00 12/17/2017 16:33:00 DIS Outpatient Juan SARAVIA MD [facility] CATH VT,SOB,CHEST PAIN [id number] 12/10/2017 08:45:00 12/10/2017 23:59:59 CLS Outpatient Juan SARAVIA MD [facility] CARD I48.0 PAF [id number] 12/10/2017 08:30:00 12/10/2017 08:30:00 CAN Preadmit Juan SARAVIA MD [facility] CARD R07.9 CHEST PAIN [id number] 12/07/2017 10:18:00 12/07/2017 23:59:59 CLS Outpatient Juan SARAVIA MD [facility] CARD I10 HTN [id number] 11/14/2017 17:00:00 11/15/2017 11:05:00 DIS Outpatient Juan SARAVIA MD [facility] ICU NEW ONSET ATRIAL FIB WITH RVR [id number] 11/19/2015 16:07:00 11/19/2015 18:20:00 DIS Emergency ALFONSO DURAN APRN [facility] ER ANXIETY ATTACK [id number] 02/19/2014 11:33:00 02/19/2014 12:54:00 DIS Emergency ALFONSO DURAN APRN [facility] ER UTI [id number] 04/29/2013 09:07:00 04/29/2013 11:30:00 DIS Emergency PHILIPPE RAMOS, SCOTT Danielle [facility] ER MULTIPLE COMPLAINTS
[2018-02-09 23:15] LABS: BILIRUBIN,URINE NEGATIVE (NEGATIVE); CLARITY,URINE VERY CLOUDY; COLOR,URINE YELLOW; GLUCOSE, URINE (UA) NEGATIVE (NEGATIVE); KETONES,URINE NEGATIVE (NEGATIVE); LEUKOCYTE ESTERASE ,URINE 3+ (NEGATIVE); NITRITE,URINE NEGATIVE (NEGATIVE); PH,URINE 7 (5-9); PROTEIN,URINE 2+ (NEGATIVE); UROBILINOGEN,URINE NORMAL (NORMAL)
[2018-02-09 23:31] LABS: BACTERIA,URINE FEW /HPF; WBC,URINE >100 /HPF
[2018-02-09] MEDS ORDERED: RX-NITROFURANTOIN 100 MG (MACROBID) CAP PPK#2 PO STA (23:34)
[2018-02-09] MEDS ORDERED: PHEN-640 PO (23:40)
[2018-02-09] MEDS ORDERED: NITR-65 PO (23:40)
--- NOTE | 2018-02-09 23:40 | ED GU-Female ---
General Chief Complaint: -Female Stated Complaint: POSS UTI Nursing Triage Note: c/o lower bilateral abdomen pain and bilateral lower back pain with urinary urgency and retention Nursing Sepsis Screen: No Definite Risk Source: patient Exam Limitations: no limitations History of Present Illness Date Seen by Provider: Feb 10, 2018 Time Seen by Provider: 23:03 Initial Comments C/O UTI SYMPTOMS C/O URINARY URGENCY, FREQUENCY AND SMALL AMOUNTS ALL DAY TODAY--HAS BEEN URINATING EVERY 5 MINUTES ALL DAY STATES YESTERDAY SHE BEGAN HAVING LOWER ABDOMINAL DISCOMFORT TODAY SHE BEGAN TO HAVE SOME LOWER BACK ACHE NO NAUSEA/VOMITING HAS BEEN COLD ALL DAY HAS HISTORY OF OCCASIONAL UTI'S Allergies and Home Medications Allergies Coded Allergies: morphine (Verified Allergy, Severe, 04/29/13) menthol (Unverified Allergy, Unknown, 02/19/14) lorazepam (Unverified Adverse Reaction, Unknown, ANGRY, 02/19/14) Uncoded Allergies: PCN (Allergy, Unknown, 02/19/14) Home Medications Apixaban 5 Mg Tablet, 5 MG PO BID Prescribed by: ALYCE RIVERA on 11/15/17 1019 Brimonidine Tartrate 5 Ml Btl, 1 DROP OP DAILY, (Reported) Carboxymethylcellulose Sodium 15 Ml Drops, 1 DROP OP DAILY, (Reported) Metoprolol Tartrate 50 Mg Tablet, 50 MG PO BID, (Reported) Nitrofurantoin Monohyd/M-Cryst 100 Mg Capsule, 100 MG PO BID Prescribed by: JOSE ELIAS ARIZMENDI on 02/09/18 2340 Phenazopyridine HCl 200 Mg Tablet, 1 TAB PO TID Prescribed by: JOSE ELIAS ARIZMENDI on 02/09/18 2340 Patient Home Medication List Home Medication List Reviewed: Yes Review of Systems Constitutional: see HPI, chills Respiratory: no symptoms reported Cardiovascular: no symptoms reported Gastrointestinal: see HPI, abdominal pain; No diarrhea, No loss of appetite, No nausea, No vomiting Genitourinary: see HPI, dysuria, frequency, flank pain, pain, urgency Musculoskeletal: see HPI, back pain Skin: no symptoms reported Psychiatric/Neurological: No Symptoms Reported Endocrine: No Symptoms Reported Hematologic/Lymphatic: No Symptoms Reported Past Catgvur-Zaaaqx-Hsmgwz Hx Patient Social History Alcohol Use: Denies Use Recreational Drug Use: No Smoking Status: Former Smoker Type Used: Cigarettes Former Smoker, Quit: Nov 15, 1999 Recent Foreign Travel: No Contact w/Someone Who Travel: No Recent Infectious Disease Expo: No Recent Hopitalizations: No Immunizations Up To Date Tetanus Booster (TDap): Unknown Seasonal Allergies Seasonal Allergies: No Past Medical History Surgeries: Yes Tonsillectomy Respiratory: Yes Asthma Cardiac: Yes (A FIB DX 10/2017) Atrial Fibrillation Neurological: No Reproductive Disorders: No 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 Genitourinary: Yes Bladder Infection Gastrointestinal: No Musculoskeletal: No Endocrine: No HEENT: Yes (POSSIBLE GLAUCOMA) Glaucoma Cancer: No Psychosocial: Yes Anxiety Integumentary: No Blood Disorders: No Adverse Reaction/Blood Tranf: No Physical Exam Vital Signs Vital Signs - First Documented 02/09/18 22:59 Temp 98.2 Pulse 74 Resp 18 B/P (MAP) 120/74 (89) Pulse Ox 98 Capillary Refill : Less Than 3 Seconds General Appearance: WD/WN, no apparent distress Cardiovascular: regular rate, rhythm, no murmur Respiratory: normal breath sounds, no respiratory distress, no accessory muscle use Gastrointestinal: normal bowel sounds, soft, no organomegaly, no pulsatile mass ; No distended, No guarding, No rebound; tenderness (MILD SUPRAPUBIC TENDERNESS) ; No hernia, No mass Back: normal inspection, no CVA tenderness, no vertebral tenderness Extremities: normal inspection, no pedal edema, no calf tenderness, normal capillary refill Neurologic/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: 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, no motor/sensory deficits, alert, normal mood/affect, oriented x 3 Skin: normal color, warm/dry; No rash Progress/Results/Core Measures Suspected Sepsis Recent Fever Within 48 Hours: No Infection Criteria Present: None New/Unexplained Altered Menta: No Sepsis Screen: No Definite Risk SIRS Temperature:98.2 Pulse: 74 Respiratory Rate: 18 Blood Pressure 120 /74 Mean: 89 Results/Orders Lab Results Laboratory Tests Test 02/09/18 23:05 Range/Units Urine Color YELLOW Urine Clarity VERY CLOUDY H Urine pH 7 5-9 Urine Specific [place] 1.005 L 1.016-1.022 Urine Protein 2+ H NEGATIVE Urine Glucose (UA) NEGATIVE NEGATIVE Urine Ketones NEGATIVE NEGATIVE Urine Nitrite NEGATIVE NEGATIVE Urine Bilirubin NEGATIVE NEGATIVE Urine Urobilinogen NORMAL NORMAL MG/DL Urine Leukocyte Esterase 3+ H NEGATIVE Urine RBC (Auto) 5+ H NEGATIVE Urine RBC 5-10 H /HPF Urine WBC >100 H /HPF Urine Crystals NONE /LPF Urine Bacteria FEW H /HPF Urine Casts NONE /LPF Urine Mucus NEGATIVE /LPF Urine Culture Indicated YES My Orders Orders - JOSE ELIAS ARIZMENDI DO Ua Culture If Indicated (02/09/18 23:04) Urine Culture (02/09/18 23:05) Rx-Nitrofurantoin Ross (Rx-Macrobid) (02/09/18 23:34) Phenazopyridine Tablet (Pyridium Tablet) (02/09/18 23:45) Rx-Nitrofurantoin Ross (Rx-Macrobid) (02/09/18 23:51) Phenazopyridine Tablet (Pyridium Tablet) (02/09/18 23:51) Medications Given in ED Current Medications Medications Dose Ordered Sig/Edel Route Start Time Stop Time Status Last Admin Dose Admin Phenazopyridine HCl 200 mg ONCE ONCE PO 02/09/18 23:45 02/09/18 23:53 DC 02/09/18 23:52 200 MG Vital Signs/I&O 02/09/18 02/09/18 22:59 23:53 Temp 98.2 98.2 Pulse 74 74 Resp 18 18 B/P (MAP) 120/74 (89) 120/74 (89) Pulse Ox 98 98 Capillary Refill : Less Than 3 Seconds Blood Pressure Mean: 89 Departure Impression Primary Impression: Urinary tract infection Disposition: 01 HOME, SELF-CARE Condition: Stable Departure-Patient Inst. Referrals: NO,LOCAL PHYSICIAN (PCP/Family) Primary Care Physician Patient Instructions: Urinary Tract Infection, Adult (DC) Add. Discharge Instructions: LOTS OF CLEAR LIQUIDS--NO COFFEE, POP OR TEA TYLENOL AND MOTRIN NEEDED FOR PAIN FOLLOW UP WITH YOUR DR IN 2-3 DAYS IF NO BETTER All discharge instructions reviewed with patient and/or family. Voiced understanding. Scripts Phenazopyridine HCl (Pyridium) 200 Mg Tablet 1 TAB PO TID for BLADDER DISCOMFORT, #15 TAB Prov: JOSE ELIAS ARIZMENDI DO 02/09/18 Nitrofurantoin Monohyd/M-Cryst (Macrobid 100 mg Capsule) 100 Mg Capsule 100 MG PO BID, #20 CAP Prov: DANA ARIZMENDIA K DO 02/09/18 DANA ARIZMENDIA Lolis DO Feb 09, 2018 23:40
[2018-02-09] MEDS ORDERED: PHENAZOPYRIDINE 100 MG (PYRIDIUM) TABLET PO ONE (23:45)
[2018-02-09] MEDS ORDERED: RX-NITROFURANTOIN 100 MG (MACROBID) CAP PPK#2 PO ONE (23:51)
[2018-02-09] MEDS ORDERED: PHENAZOPYRIDINE 100 MG (PYRIDIUM) TABLET ONE (23:51)
[2018-02-09 23:53] VITALS: BP 120/74
== END 2018-02-09 23:53 | disposition home or self-care (01) ==
LOC: EDUNIT# 22:49 → ER 22:51
DX: N39.0 Urinary tract infection, site not specified (principal); J45.909 Unspecified asthma, uncomplicated; I48.91 Unspecified atrial fibrillation; F41.9 Anxiety disorder, unspecified; Z87.891 Personal history of nicotine dependence; Z88.6 Allergy status to analgesic agent; Z88.0 Allergy status to penicillin; Z88.8 Allergy status to other drugs, medicaments and biological substances
CPT/HCPCS: 81000; 87077; 87088; 87186; 99283

== ENCOUNTER 2018-02-21 14:19 | Emergency (ER) | payer OTHER ==
[~2018-02-21] VITALS: Ht 165.1 cm; Wt 77.1 kg
[~2018-02-21 14:19] MED LIST changes: +NITR-65 PO; +PHEN-640 PO
--- OUTSIDE RECORDS SUMMARY | 2018-02-21 14:26 | XMS REPORT | Continuity of Care Document ---
Author Author [facility] Organization [facility] Address Unknown Phone Unavailable Care Team Providers Care Coke Inspector Name Role Phone NO, LOCAL PHYSICIAN PP Unavailable Insurance Providers Payer Name Policy Number Subscriber Name Relationship Self Pay Ruth Hensley 01 Self / Same As Patient Advance Directives Directive Response Recorded Date Advance Directives N 04/29/13 9:13am Organ Donor N 04/29/13 9:13am Problems No Known Problems or Medical conditions. Family History History Response Recorded Date/Time Hx Family Cancer Y cervical 07/23/11 3: 05pm Hx Family Lung Cancer Y aunt 07/23/11 3: 05pm Hx Family Cardiac Disorders Y extended family and son 07/23/11 3:05pm Hx Family Hypertension Y yes 07/23/11 3: 05pm Hx Family Myocardial Infarction Y uncle 07/23/11 3:05pm Social History History Response Recorded Date/Time Alcohol Use Occasionally Uses 04/29/13 9: 13am Recreational Drug Use N 04/29/13 9:13am Allergies, Adverse Reactions, Alerts Allergen Type Severity Reaction Last Updated lorazepam Adverse Reaction ANGRY 07/23/11 morphine Allergy Severe 04/29/13 PCN Allergy 01/26/11 Medications Medication Dose Units Route Sig Qty Days Alprazolam (Xanax Tablet) 0.5 Mg GT BID 20 Alprazolam (Xanax) 1 Tab PO HS PRN Aspirin (Aspirin Ec 81 Mg) 81 Mg PO DAILY Response Recorded Date/Time Status not known Unknown Results No Known Relevant Diagnostic Tests, Laboratory Data and/or Discharge Summary. Encounters Encounter Location Date/Time Departed Emergency Room [facility] 02/03 9:07am Discharged Inpatient [facility] 2:35pm
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
[2018-02-21 16:21] VITALS: BP 123/68
== END 2018-02-21 16:30 | disposition home or self-care (01) ==
LOC: EDUNIT# 14:19 → ER 14:22
DX: S62.625A Displaced fracture of middle phalanx of left ring finger, initial encounter for closed fracture (principal); I48.91 Unspecified atrial fibrillation; J45.909 Unspecified asthma, uncomplicated; R40.2142 Coma scale, eyes open, spontaneous, at arrival to emergency department; R40.2252 Coma scale, best verbal response, oriented, at arrival to emergency department; R40.2362 Coma scale, best motor response, obeys commands, at arrival to emergency department; F41.9 Anxiety disorder, unspecified; Z87.448 Personal history of other diseases of urinary system; Z79.01 Long term (current) use of anticoagulants; Z88.5 Allergy status to narcotic agent; Z88.8 Allergy status to other drugs, medicaments and biological substances; Z88.0 Allergy status to penicillin; Z87.891 Personal history of nicotine dependence; Y04.8XXA Assault by other bodily force, initial encounter
CPT/HCPCS: 70450; 73130

== ENCOUNTER 2019-02-02 23:25 | Emergency (ER) | payer SELFPAY ==
[~2019-02-02] VITALS: Ht 165.1 cm; Wt 74.8 kg
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
[2019-02-02 23:46] LABS: BILIRUBIN,URINE NEGATIVE (NEGATIVE); CLARITY,URINE VERY CLOUDY; COLOR,URINE YELLOW; GLUCOSE, URINE (UA) NEGATIVE (NEGATIVE); KETONES,URINE NEGATIVE (NEGATIVE); LEUKOCYTE ESTERASE ,URINE 3+ (NEGATIVE); NITRITE,URINE NEGATIVE (NEGATIVE); PH,URINE 7 (5-9); PROTEIN,URINE 3+ (NEGATIVE); UROBILINOGEN,URINE NORMAL (NORMAL)
[2019-02-02 23:54] LABS: BACTERIA,URINE FEW /HPF; RBC,URINE >100 /HPF; WBC,URINE TNTC /HPF
[2019-02-03] MEDS ORDERED: cefTRIAXone 1,000 MG/2.86 ml vial (IM ONLY) IM ONE (00:15)
[2019-02-03] MEDS ORDERED: LIDOCAINE 1% INJ 20 ML 20 ML VIAL INJ ONE (00:15)
[2019-02-03] MEDS ORDERED: CEPH-507 PO (00:19)
--- NOTE | 2019-02-03 00:20 | ED GU-Female ---
General Chief Complaint: - Urinary Stated Complaint: UTI Nursing Triage Note: Pt amb to room #6 w/o difficulty. a&ox4. c/o urinary frequency, urgency, pressure, and pain. Reports blood tinged urine. Reports sytmpoms began on the morning of 02/01/19. Denies fever or chills. Nursing Sepsis Screen: No Definite Risk Source: patient Exam Limitations: no limitations History of Present Illness Date Seen by Provider: Feb 02, 2019 Time Seen by Provider: 23:29 Initial Comments This 63-year-old woman presents to the emergency room with recent development of urinary frequency, pelvic pressure, lower backache burning with urination, and blood-tinged urine. She is afebrile but has felt chilled. She is anticoagulated on Eliquis for A. fib. She reports having a urinary tract infection about once a year. She reports recently having a sexual encounter with her from whom she is prior to onset of symptoms. She denies any vaginal symptoms and does not desire pelvic exam. She is going to follow-up with a women's health clinic next week. Allergies and Home Medications Allergies Coded Allergies: morphine (Verified Allergy, Severe, 04/29/13) menthol (Unverified Allergy, Unknown, 02/19/14) lorazepam (Unverified Adverse Reaction, Unknown, ANGRY, 02/19/14) Uncoded Allergies: PCN (Allergy, Unknown, 02/19/14) Home Medications Apixaban 5 Mg Tablet, 5 MG PO BID Prescribed by: ALYCE RIVERA on 11/15/17 1019 Brimonidine Tartrate 5 Ml Btl, 1 DROP OP DAILY, (Reported) Carboxymethylcellulose Sodium 15 Ml Drops, 1 DROP OP DAILY, (Reported) Cephalexin 500 Mg Capsule, 500 MG PO TID Prescribed by: CYN HERNANDES on 02/03/19 0019 Metoprolol Tartrate 50 Mg Tablet, 50 MG PO BID, (Reported) Nitrofurantoin Monohyd/M-Cryst 100 Mg Capsule, 100 MG PO BID Prescribed by: JOSE ELIAS ARIZMENDI on 02/09/18 2340 Phenazopyridine HCl 200 Mg Tablet, 1 TAB PO TID Prescribed by: JOSE ELIAS ARIZMENDI on 02/09/18 2340 Patient Home Medication List Home Medication List Reviewed: Yes Review of Systems Review of Systems Constitutional: see HPI EENTM: no symptoms reported Respiratory: no symptoms reported Cardiovascular: no symptoms reported Gastrointestinal: no symptoms reported Genitourinary: see HPI : No Musculoskeletal: no symptoms reported Skin: no symptoms reported Psychiatric/Neurological: No Symptoms Reported Endocrine: No Symptoms Reported Hematologic/Lymphatic: No Symptoms Reported Past [place]-Jhfzqo-Xyxzyw Hx Past Med/Social Hx: Reviewed Nursing Past Med/Soc Hx Patient Social History Alcohol Use: Denies Use Recreational Drug Use: No Smoking Status: Former Smoker Type Used: Cigarettes Former Smoker, Quit: Nov 15, 1999 2nd Hand Smoke Exposure: No Recent Foreign Travel: No Contact w/Someone Who Travel: No Recent Infectious Disease Expo: No Recent Hopitalizations: No Immunizations Up To Date Tetanus Booster (TDap): Unknown Seasonal Allergies Seasonal Allergies: No Past Medical History Surgeries: Yes Tonsillectomy Respiratory: Yes Asthma Cardiac: Yes (A FIB DX 10/2017) Atrial Fibrillation Neurological: No Reproductive Disorders: No 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 0.0oz. 74.089911wr; 29.8 BMI Method:Stated General Appearance: WD/WN, no apparent distress HEENT: normal ENT inspection Neck: normal inspection Cardiovascular: regular rate, rhythm, no edema, no murmur Respiratory: lungs clear, normal breath sounds, no respiratory distress, no a ccessory muscle use Gastrointestinal: normal bowel sounds, soft, tenderness (mild suprapubic) Extremities: normal inspection, no pedal edema Neurologic/Psychiatric: lap grinder II-XII nml as tested, no motor/sensory deficits, alert, normal mood/affect, oriented x 3 Skin: normal color, warm/dry Progress/Results/Core Measures Suspected Sepsis Recent Fever Within 48 Hours: No Infection Criteria Present: Suspected New Infection New/Unexplained Altered Menta: No Sepsis Screen: No Definite Risk SIRS Temperature:97.9 Pulse: 75 Respiratory Rate: 16 Blood Pressure 141 /79 Mean: 99 Results/Orders Lab Results Laboratory Tests Test 02/02/19 23:36 Range/Units Urine Color YELLOW Urine Clarity VERY CLOUDY H Urine pH 7 5-9 Urine Specific [place] 1.010 L 1.016-1.022 Urine Protein 3+ H NEGATIVE Urine Glucose (UA) NEGATIVE NEGATIVE Urine Ketones NEGATIVE NEGATIVE Urine Nitrite NEGATIVE NEGATIVE Urine Bilirubin NEGATIVE NEGATIVE Urine Urobilinogen NORMAL NORMAL MG/DL Urine Leukocyte Esterase 3+ H NEGATIVE Urine RBC (Auto) 5+ H NEGATIVE Urine RBC >100 H /HPF Urine WBC TNTC H /HPF Urine Squamous Epithelial Cells 5-10 /HPF Urine Crystals NONE /LPF Urine Bacteria FEW H /HPF Urine Casts NONE /LPF Urine Mucus NEGATIVE /LPF Urine Culture Indicated YES My Orders Orders - CYN LUTHER MD Ua Culture If Indicated (02/02/19 23:29) Urine Culture (02/02/19 23:36) Ceftriaxone For Im Use (Rocephin For Im (02/03/19 00:15) Lidocaine 1% Inj 20 Ml (Xylocaine 1% Inj (02/03/19 00:15) Vital Signs/I&O 02/02/19 23:35 Temp 97.9 Pulse 75 Resp 16 B/P (MAP) 141/79 (99) Pulse Ox 98 O2 Delivery Room Air Capillary Refill : Less Than 3 Seconds Blood Pressure Mean: 99 Progress Note : Progress Note Patient had significant WBC and RBC in her urine. Rocephin injection was administered. I advised her to discuss her symptoms with the women's health clinic next week when she has her well woman visit and Pap smear. Patient did not want to pursue a pelvic exam ER. Departure Impression Primary Impression: Urinary tract infection Qualified Codes: N39.0 - Urinary tract infection, site not specified; R31.9 - Hematuria, unspecified Disposition: 01 HOME, SELF-CARE Condition: Improved Departure-Patient Inst. Decision time for Depature: 00:17 Referrals: NO,LOCAL PHYSICIAN (PCP/Family) Primary Care Physician Patient Instructions: Blood in the Urine (Hematuria) in Adults, Urinary Tract Infections in Adults Add. Discharge Instructions: Drink plenty of clear liquids. Complete your antibiotic as prescribed. Follow-up with your primary care provider to review urine culture results and to ensure the blood clears from your urine after you complete antibiotics. Follow-up with the women's health clinic next week as planned and discuss your symptoms with them. You may need screening for sexually transmitted infections and a Pap smear. Return to care if you have worsening symptoms. All discharge instructions reviewed with patient and/or family. Voiced understanding. Scripts Cephalexin (Keflex) 500 Mg Capsule 500 MG PO TID, #20 CAP Prov: CYN LUTHER MD 02/03/19 CYN LUTHER MD Feb 03, 2019 00:20
[2019-02-03 00:30] VITALS: BP 119/77
== END 2019-02-03 00:30 | disposition home or self-care (01) ==
LOC: EDUNIT# 23:25 → ER 23:28
DX: N39.0 Urinary tract infection, site not specified (principal); J45.909 Unspecified asthma, uncomplicated; I48.91 Unspecified atrial fibrillation; F41.9 Anxiety disorder, unspecified; Z87.448 Personal history of other diseases of urinary system; Z88.5 Allergy status to narcotic agent; Z88.8 Allergy status to other drugs, medicaments and biological substances; Z88.0 Allergy status to penicillin; Z79.01 Long term (current) use of anticoagulants; Z87.440 Personal history of urinary (tract) infections; Z87.891 Personal history of nicotine dependence; Z90.89 Acquired absence of other organs
CPT/HCPCS: 81000; 87077; 87088; 87186; 96372; 99284

== ENCOUNTER → 2020-12-21 | Outpatient (CLI) | payer MEDICARE ==
[~2020-12-21] MED LIST changes: +CEPH-507 PO
[2020-12-21 10:53] LABS: HEMOGLOBIN 12.5 g/dL (11.5-16.0); MEAN PLATELET VOLUME 9.7 fL (9.0-12.2); WHITE BLOOD COUNT 5.9 10^3/uL (4.3-11.0)
[2020-12-21 11:15] LABS: ALANINE AMINOTRANSFERASE 31 U/L (0-55); ALKALINE PHOSPHATASE 62 U/L (40-136); BILIRUBIN,TOTAL 0.4 MG/DL (0.1-1.0); BUN/CREATININE RATIO 13; CALCIUM 8.7 MG/DL (8.5-10.1); CARBON DIOXIDE 26 MMOL/L (21-32); CHLORIDE 106 MMOL/L (98-107); CREATININE SERUM 0.69 MG/DL (0.60-1.30); GFR ESTIMATED > 60; GLUCOSE 93 MG/DL (70-105); SODIUM 140 MMOL/L (135-145); TOTAL PROTEIN 6.4 GM/DL (6.4-8.2)
== END ==
LOC: CARD 10:00 → MERGE 10:00
PROVIDERS: ATTEND Nurse Practitioner Family
DX: I10 Essential (primary) hypertension (principal); R00.2 Palpitations
CPT/HCPCS: 36415; 80053; 83735; 84443; 85027; 93225; 93226; 93306

== ENCOUNTER → 2021-01-02 | Outpatient (CLI) | payer SELFPAY | LOC: LABNPT 15:38 | PROVIDERS: ATTEND Nurse Practitioner Family | DX: Z53.9 Procedure and treatment not carried out, unspecified reason (principal) ==